=== PATIENT | male | born 1945 | race Caucasian/White ===

== ENCOUNTER 2017-04-21 08:00 | Outpatient (RCR) | payer MEDICARE, OTHER, SELFPAY | END 2017-04-21 23:59 | LOC: PT.CARL 08:00 | PROVIDERS: Referring Provider Plastic Surgery; Visit Provider Plastic Surgery | DX: G56.03 Carpal tunnel syndrome, bilateral upper limbs (principal) | CPT/HCPCS: G8990; G8991; G8992; 97110; 97140; 97165 ==

== ENCOUNTER → 2017-05-15 08:56 | Outpatient (POV) | payer MEDICARE, OTHER, SELFPAY | PROVIDERS: Family Provider Internal Medicine; PCP Internal Medicine; Visit Provider Physician Assistant | DX: Z00.00 Encounter for general adult medical examination without abnormal findings (principal) ==

== ENCOUNTER 2017-05-22 11:00 | Outpatient (RCR) | payer MEDICARE, OTHER, SELFPAY | END 2017-06-12 13:00 | disposition home or self-care (01) | LOC: OT 11:00 | PROVIDERS: Family Provider Internal Medicine; PCP Internal Medicine; Visit Provider Plastic Surgery | DX: G56.03 Carpal tunnel syndrome, bilateral upper limbs (principal) | CPT/HCPCS: 97110; 97140 ==

== ENCOUNTER → 2017-06-16 16:03 | Outpatient (REF) | payer MEDICARE, OTHER, SELFPAY ==
[2017-06-16 17:02] LABS: Anion Gap 10.5 mEq/L (5-15); Blood Urea Nitrogen 17 mg/dL (7-18); Carbon Dioxide 32 mmol/L (21.0-32.0); Chloride 105 mmol/L (98-107); Creatinine,Serum 1.43 mg/dL (0.70-1.30); Estimated Glomerular Filt Rate 49 ml/min (>60); GFR (African American) 59 ML/MIN (>60); Glucose 98 mg/dL (74-106); Potassium 4.5 mmoL/L (3.5-5.1); Sodium 143 mmol/L (136-145)
== END ==
LOC: LAB 16:03
PROVIDERS: Visit Provider Internal Medicine
DX: I10 Essential (primary) hypertension (principal)
CPT/HCPCS: 80048

== ENCOUNTER → 2017-09-20 14:35 | Outpatient (CLI) | payer MEDICARE, OTHER, SELFPAY ==
--- NOTE | 2017-09-20 14:39 | MR_ITS ---
MR shoulder RT wo con COMPARISON: None HISTORY: Right shoulder pain with decreased range of motion ORDERING PHYSICIAN: Poncho Lawrence PATIENT AGE: 72 years TECHNIQUE: Routine multiplanar multiecho sequences are performed without contrast. FINDINGS: Study is somewhat limited due to motion artifact. There appears to been prior osteotomy at the acromioclavicular joint. Correlation with radiographs would be helpful. There is subacromial stenosis. There is thinning of the supraspinatus tendon with partial tear involving the distal aspect of the supraspinatus tendon. There is also thinning of the infraspinatus tendon. A full-thickness tear however not identified. Subscapularis and teres minor tendons are intact. Subcortical cystic changes involve the humeral head laterally and posteriorly. There are mild osteoarthritic changes at the glenohumeral joint. Humeral heads right slightly superior within the glenoid fossa. No obvious labral tear. There is a small amount of fluid in the subscapular region and within the shoulder joint. Bicipital tendon is in place. IMPRESSION: 1. 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 2. Subarticular cystic changes of the humeral head with shoulder joint effusion
== END ==
PROVIDERS: Family Provider Internal Medicine; PCP Internal Medicine; Visit Provider Internal Medicine
DX: M25.511 Pain in right shoulder (principal); M25.611 Stiffness of right shoulder, not elsewhere classified
CPT/HCPCS: 73221

== ENCOUNTER → 2017-11-17 13:15 | Outpatient (CLI) | payer MEDICARE, OTHER, SELFPAY ==
[2017-11-17 13:30] LABS: Microscopic, Urine URINE MICROSCOPIC (MICROSCOPIC)
[2017-11-17 13:52] LABS: Appearance,Urine CLEAR (Clear); Bilirubin,Urine Negative (Negative); Blood, Urine Negative (Negative); Color,Urine YELLOW (Yellow); Glucose,Urine (UA) Negative (Negative); Ketones,Urine Negative (Negative); Leukocyte Esterase,Urine Negative (Negative); Nitrate,Urine Negative (Negative); Protein,Urine Negative (Negative); Urobilinogen,Urine 0.2 EU/dl (0.2)
[2017-11-17 14:42] LABS: INR 1.02 (0.9-1.1); Prothrombin Time 10.5 seconds (9.4-11.8)
[2017-11-17 14:52] LABS: Hemoglobin A1C 6.1 % (0.0-7.0)
[2017-11-17 15:03] LABS: Basophils % 0.4 % (0.1-2.0); Eosinophils % 0.4 % (0.1-12.0); Hematocrit 41.7 % (42.0-52.0); Hemoglobin 14.1 g/dL (14.1-18.0); Lymphocytes # 2.2 K/mm3 (0.7-4.5); Lymphocytes % 27.9 K/mm3 (10-50); Mean Corpuscular HGB Conc 33.7 g/dL (31.8-35.4); Mean Corpuscular Hemoglobin 32.7 pg (27.0-31.2); Mean Corpuscular Volume 97.1 fl (80-94); Mean Platelet Volume 6.6 fl (7.4-10.4); Monocytes # 0.5 K/mm3 (0.1-1.0); Monocytes % 6.4 % (1.7-9.3); Neutrophils # 5.1 K/mm3 (1.8-7.8); Neutrophils % 64.8 % (37.0-80.0); Platelet Count 350 K/mm3 (142-424); Red Cell Distribution Width 12.7 % (11.5-17.5); White Blood Count 7.9 K/mm3 (4.8-10.8)
[2017-11-17 17:36] LABS: Alanine Aminotransferase 25 U/L (12-78); Albumin Level 4.1 gm/dL (3.4-5.0); Albumin/Globulin Ratio 1.4 (1.1-1.8); Alkaline Phosphatase 67 U/L (46-116); Anion Gap 9.4 mEq/L (5-15); Aspartate Amino Transferase 16 U/L (15-37); Bilirubin,Total 0.6 mg/dL (0.2-1.0); Blood Urea Nitrogen 21 mg/dL (7-18); Calcium 9.2 mg/dL (8.5-10.1); Carbon Dioxide 29 mmol/L (21.0-32.0); Chloride 105 mmol/L (98-107); Creatinine,Serum 1.43 mg/dL (0.70-1.30); Estimated Glomerular Filt Rate 49 ml/min (>60); GFR (African American) 59 ML/MIN (>60); Globulin 2.9 gm/dl (1.3-3.2); Glucose 90 mg/dL (74-106); Potassium 4.4 mmoL/L (3.5-5.1); Sodium 139 mmol/L (136-145)
== END ==
PROVIDERS: PCP Internal Medicine; Visit Provider Orthopaedic Surgery
DX: M75.101 Unspecified rotator cuff tear or rupture of right shoulder, not specified as traumatic; E78.5 Hyperlipidemia, unspecified; I49.9 Cardiac arrhythmia, unspecified; R73.01 Impaired fasting glucose
CPT/HCPCS: 36415; 80053; 81001; 83036; 85025; 85610; 85730

== ENCOUNTER → 2017-12-18 13:14 | Outpatient (POV) | payer MEDICARE, OTHER, SELFPAY | PROVIDERS: Family Provider Internal Medicine; PCP Internal Medicine; Visit Provider Physician Assistant | DX: Z00.00 Encounter for general adult medical examination without abnormal findings (principal) ==

== ENCOUNTER → 2018-03-06 14:03 | Outpatient (POV) | payer MEDICARE, OTHER, SELFPAY | PROVIDERS: Visit Provider Dermatology | DX: Z00.00 Encounter for general adult medical examination without abnormal findings (principal) ==

== ENCOUNTER 2018-03-27 10:00 | Outpatient (RCR) | payer MEDICARE, OTHER, SELFPAY | END 2018-03-27 10:30 | disposition home or self-care (01) | LOC: PT 10:00 | PROVIDERS: Family Provider Internal Medicine; PCP Internal Medicine; Visit Provider Orthopaedic Surgery | DX: M75.101 Unspecified rotator cuff tear or rupture of right shoulder, not specified as traumatic (principal) | CPT/HCPCS: 97014; 97016; 97110; 97140; 97163; 97164; G0283 ==

== ENCOUNTER → 2018-06-05 13:50 | Outpatient (POV) | payer MEDICARE, OTHER, SELFPAY | PROVIDERS: Visit Provider Dermatology | DX: Z00.00 Encounter for general adult medical examination without abnormal findings (principal) ==

== ENCOUNTER → 2018-11-15 07:00 | Outpatient (CLI) | payer MEDICARE, OTHER, SELFPAY ==
[2018-11-16 12:44] LABS: Creatinine,Urine Random 56 mg/dL (20-320)
[2018-11-16 12:51] LABS: Total Protein,Urine Random < 6.0 mg/dL (0.0-11.9)
[2018-11-16 12:52] LABS: Collection Time,Urine 24 hours; Creatinine 24 Hour,Urine 1400 mg/24hr (630-2500); Total Protein 24 Hour,Urine 150 mg/24 hr (40-90); Total Volume,Urine 2500 mL (250-2400)
== END ==
PROVIDERS: Visit Provider Internal Medicine
DX: R79.89 Other specified abnormal findings of blood chemistry (principal)
CPT/HCPCS: 82570; 84155

== ENCOUNTER → 2018-11-16 09:58 | Outpatient (CLI) | payer MEDICARE, OTHER, SELFPAY ==
--- NOTE | 2018-11-16 10:06 | US_ITS ---
US Kidney COMPARISON: None HISTORY: Elevated creatinine TECHNIQUE: Targeted ultrasound the kidneys FINDINGS: The right kidney measures 9.9 x 4.7 x 5.6 cm. The cortical thickness is 1.3 cm. There is no hydronephrosis. There is a tiny hypoechoic exophytic cystic lesion mid pole measuring 1.2 x 0.9 x 0.8 cm. Is a focal high density midpole of the pelvis with acoustic shadowing beneath suggesting a renal calculus measuring approximate 1.5 cm. There is normal vascularity. The spleen was not definitely imaged. The left kidney measures 10.5 x 4.5 x 4.6 semiurgent. The cortical thickness is 1.0 cm. There is no hydronephrosis and no cystic or solid lesions seen. There is normal vascularity. IMPRESSION: Normal size kidneys with good cortical thickness bilaterally apparent nonobstructing right renal calculus as noted
== END ==
PROVIDERS: Visit Provider Internal Medicine
DX: R94.4 Abnormal results of kidney function studies (principal)
CPT/HCPCS: 76770

== ENCOUNTER → 2018-11-24 10:00 | Outpatient (CLI) | payer MEDICARE, OTHER, SELFPAY ==
[2018-11-24 11:34] LABS: Creatinine,Urine Random 63 mg/dL (20-320)
[2018-11-24 11:39] LABS: Collection Time,Urine 24 hours; Creatinine 24 Hour,Urine 1512 mg/24hr (630-2500); Creatinine,Serum 1.46 mg/dL (0.70-1.30); Total Volume,Urine 2400 mL (250-2400)
[2018-11-24 11:45] LABS: Patient Height,Urine 69 inches
[2018-11-24 11:46] LABS: Creatinine Clearance Urine 60.4 mL/min (85-125); Patient Weight,Urine 200 lbs
== END ==
PROVIDERS: Visit Provider Internal Medicine
DX: R94.4 Abnormal results of kidney function studies (principal)
CPT/HCPCS: 82575

== ENCOUNTER → 2019-01-29 09:58 | Outpatient (POV) | payer MEDICARE, OTHER, SELFPAY | PROVIDERS: Visit Provider Dermatology | DX: Z00.00 Encounter for general adult medical examination without abnormal findings (principal) ==

== ENCOUNTER → 2019-08-12 07:56 | Outpatient (CLI) | payer MEDICARE, OTHER, SELFPAY ==
--- NOTE | 2019-08-12 07:57 | CT_ITS ---
PROCEDURE: CT ABDOMEN PELVIS WO CON CLINICAL INDICATION: kidney stone Right flank pain COMPARISON: No exams were available for comparison TECHNIQUE: Axial images obtained with sagittal and coronal reformats. All CT scans at the facility use one or more dose reduction, viz: automated exposure control, ma/kV adjustment per patient size (including targeted exams where dose is matched to indication, i.e. head), or iterative reconstruction technique. FINDINGS: LOWER THORAX: Nodularity noted in the left lung base at 5 mm and may be due to an area fibrosis and may be confirmed follow-up. ABDOMEN & PELVIS: The liver, gallbladder, spleen, pancreas and adrenal glands have an unremarkable appearance. There are bilateral nonobstructing renal calculi. A 5 mm stone is present in the mid polar region of the right kidney and also 1 in the mid polar region of the left kidney measuring 5 mm. There is some mild stranding of the perinephric renal fat nonspecific. No ureteral calculi are evident Prostate is enlarged at 5 cm. No evidence of appendicitis or diverticulitis. There is diverticulosis of the sigmoid colon. Unremarkable appearing urinary bladder Degenerative changes of the hips and spine. IMPRESSION: 1. Bilateral nephrolithiasis. No ureteral calculi or hydronephrosis. 2. Sigmoid diverticulosis without diverticulitis. 3. Constipation Dictated by: Thomas Mcelroy MD 08/13/2019 12:58 Electronically signed by Thomas Mcelroy MD in [facility] 08/13/2019 12:58
== END ==
PROVIDERS: PCP Internal Medicine; Visit Provider Urology
DX: N20.0 Calculus of kidney (principal)
CPT/HCPCS: 74176

== ENCOUNTER → 2019-09-03 14:29 | Outpatient (POV) | payer MEDICARE, OTHER, SELFPAY | PROVIDERS: PCP Internal Medicine; Visit Provider Physician Assistant | DX: Z00.00 Encounter for general adult medical examination without abnormal findings (principal) ==

== ENCOUNTER → 2019-09-12 11:57 | Outpatient (CLI) | payer MEDICARE, OTHER, SELFPAY ==
[2019-09-12 13:49] LABS: Prostate Specific Ag Screen 2.5 ng/ml (0.0-4.0)
== END ==
PROVIDERS: Visit Provider Urology
DX: Z12.5 Encounter for screening for malignant neoplasm of prostate (principal)
CPT/HCPCS: 36415; G0103

== ENCOUNTER 2019-11-22 10:49 | Emergency (ER) | payer MEDICARE, OTHER, SELFPAY ==
[2019-11-22] VITALS (8 sets, daily range): BP systolic 125–163; BP diastolic 74–82; PULSE 48–65; RESP 16; TEMP 36.6; O2SAT 94–98; BMI 27.3
--- NOTE | 2019-11-22 10:45 | ECG_ITS ---
APPROVED REPORT Exam: Resting ECG HR:58 bpm ECG Measurements Heart Rate 58 AXES SC 136 P 70 QRSd 92 QRS -26 QT 448 T 31 QTc 439 <Conclusion> Sinus bradycardia Otherwise normal ECG Electronically signed by : Poncho Lawrence, 11/22/2019 19:57:13
--- NOTE | 2019-11-22 10:53 | XR_ITS ---
PROCEDURE: XR CHEST 2V CLINICAL HISTORY: Chest Pain Chest pain, shortness of air, chest tightness COMPARISON: No exams were available for comparison FINDINGS: The cardiomediastinal silhouette and pulmonary vascularity are within normal limits. The lungs are clear without infiltrates, suspicious nodules, or pleural effusions. There are postsurgical changes of the right shoulder and distal clavicle IMPRESSION: No acute findings. Dictated by: Thomas Mcelroy MD 11/22/2019 14:14 Electronically signed by Thomas Mcelroy MD in [facility] 11/22/2019 14:14
[2019-11-22 11:02] LABS: Basophils % 0.4 % (0.1-2.0); Eosinophils % 0.5 % (0.1-12.0); Hematocrit 38.8 % (42.0-52.0); Lymphocytes # 2.8 K/mm3 (0.7-4.5); Lymphocytes % 33.7 % (10-50); Mean Corpuscular HGB Conc 33.5 g/dL (31.8-35.4); Mean Corpuscular Hemoglobin 32.2 pg (27.0-31.2); Mean Corpuscular Volume 96.1 fl (80-94); Mean Platelet Volume 7.2 fl (7.4-10.4); Monocytes # 0.4 K/mm3 (0.1-1.0); Monocytes % 5.2 % (1.7-9.3); Neutrophils % 60.2 % (37.0-80.0); Platelet Count 295 K/mm3 (142-424); Red Blood Count 4.03 M/mm3 (4.60-6.20); White Blood Count 8.3 K/mm3 (4.8-10.8)
[2019-11-22 11:12] LABS: Anion Gap 13.9 mEq/L (5-15); Blood Urea Nitrogen 19 mg/dl (9-20); Calcium 9.8 mg/dl (8.4-10.2); Carbon Dioxide 28 mmol/L (22.0-30.0); Chloride 105 mmol/L (98-107); Creatinine Clearance Estimated 58 mL/min (50-200); Estimated Glomerular Filt Rate 54 ml/min (>60); GFR (African American) 65 ML/MIN (>60); Glucose 109 mg/dl (74-100); Potassium 3.9 mmoL/L (3.5-5.1); Sodium 143 mmol/L (136-145)
--- NOTE | 2019-11-22 11:17 | PC.NURSE ---
Pt walked by [employer] to rad.
--- NOTE | 2019-11-22 11:19 | PC.NURSE ---
t walked back from [facility].
[2019-11-22 11:24] LABS: Troponin I < 0.01 ng/ml (0.00-0.034)
--- NOTE | 2019-11-22 12:44 | HMH.EDCP ---
ED Disposition Clinical Impression: Chest pain Disposition: Home, Self-Care Condition on Discharge: Good Instructions: DI for Atypical Chest Pain Additional Instructions: Please follow-up with your head mechanic at [facility] in the next week for an outpatient stress test. If condition worsens please return to the emergency department. Referrals: Poncho Lawrence [Primary Care Provider] - - Critical Care Critical Care Time: No Attestation: On 11/22/19, the high probability of a clinically significant, sudden or life threatening deterioration of the following system(s) required my full and direct attention, intervention and personal management. The time I documented below is in addition to time spent performing reported procedures but includes the following listed in this critical care notation. Medical Decision Making - Medical Records Medical records reviewed: Yes: I reviewed the patient's medical records. - Tc Inquiry Pt receiving controlled substance: No Vital Signs: 11/22/19 10:51 11/22/19 11:28 11/22/19 11:54 Temperature 98 F Temperature Source Oral Pulse Rate [Left Radial] 52 L 55 L 55 L Respiratory Rate 16 Blood Pressure [Right Arm] 154/77 H 159/74 H 147/77 H Blood Pressure Mean [Right Arm] 102 102 100 Blood Pressure Source [Right Arm] Automatic Cuff Automatic Cuff Blood Pressure Position [Right Arm] Sitting Sitting Sitting 02 Sat by Pulse Oximetry 98 98 95 Oxygen Delivery Method Room Air Room Air Room Air 11/22/19 12:32 Temperature Temperature Source Pulse Rate [Left Radial] 48 L Respiratory Rate Blood Pressure [Right Arm] 147/79 H Blood Pressure Mean [Right Arm] 101 Blood Pressure Source [Right Arm] Automatic Cuff Blood Pressure Position [Right Arm] Sitting 02 Sat by Pulse Oximetry 94 L Oxygen Delivery Method Room Air - Lab Data Lab results reviewed: Yes: I reviewed the patient's lab results. Lab Results 11/22/19 10:55: WBC 8.3, RBC 4.03 L, Hgb 13.0 L, Hct 38.8 L, MCV 96.1 H, MCH 32.2 H, MCHC 33.5, RDW 13.0, Plt Count 295, MPV 7.2 L, Neut % (Auto) 60.2, Lymph % (Auto) 33.7, Concho % (Auto) 5.2, Eos % (Auto) 0.5, Baso % (Auto) 0.4, Neut # (Auto) 5.0, Lymph # (Auto) 2.8, Concho # (Auto) 0.4, Eos # (Auto) 0.0, Baso # (Auto) 0.0 11/22/19 10:55: Sodium 143, Potassium 3.9, Chloride 105, Carbon Dioxide 28, Anion Gap 13.9, BUN 19, Creatinine 1.30 H, Estimated Creat Clear 58, Estimated GFR 54 L, Est GFR ( Amer) 65, Glucose 109 H, Calcium 9.8, Troponin I < 0.01 Result diagrams: 11/22/19 10:55 11/22/19 10:55 Orders (Tests/Meds): ED MEDICATIONS Discontinued Medications Generic Name Dose Route Start Last Admin Trade Name Freq PRN Reason Stop Dose Admin Aspirin 324 mg 11/22/19 10:59 11/22/19 11:04 Aspirin 81mg Chewable Tablet PO 11/22/19 11:00 324 mg ONCE ONE Administration Nitroglycerin 1 gm 11/22/19 11:22 11/22/19 11:26 Nitroglycerin 1 Inch Oint Udp TD 11/22/19 11:23 1 gm ONCE ONE Administration ORDERS Category Date Time Status XR chest 2V Stat Exams 11/22/19 10:53 Taken Troponin I Q3H Lab 11/22/19 14:00 Ordered Troponin I Q3H Lab 11/22/19 17:00 Ordered - Radiology Data #1 Image(s): Chest Preliminary Findings: Normal/NAD - ECG Data Tracing #1 I reviewed this ECG and interpreted as documented below: Normal Sinus Rhythm: Yes - DIEGO Score for Non-Stemi Age of Patient: 70-79 years old Heart Rate: 50-69 bpm Systolic Blood Pressure: 120-139 mmhg Serum Creatinine: 0.40-0.79 mg/dl CHF Killip Class: I-No CHF Other Risk Factors: None Non-Stemi Risk Score: 116 Risk Stratification: 109-140 = Intermediate Ri Medical Decision Narrative: Troponins were negative he had a 2-hour troponin done was negative as well. Chest Pain HPI - General Chief Complaint: Chest Pain Stated Complaint: Chest Pain Time Seen by Provider: 11/22/19 12:45 Mode of Arrival: Ambulatory Source of Information: Patient Limitations:
[2019-11-22 13:59] LABS: Troponin I < 0.01 ng/ml (0.00-0.034)
== END 2019-11-22 16:05 | disposition home or self-care (01) ==
PROVIDERS: Emergency Provider Family Medicine; PCP Internal Medicine
DX: R07.9 Chest pain, unspecified (principal); I10 Essential (primary) hypertension; E78.5 Hyperlipidemia, unspecified; Z79.899 Other long term (current) drug therapy
CPT/HCPCS: 71046; 80048; 84484; 85025; 93005; 99284

== ENCOUNTER → 2019-11-28 11:03 | Outpatient (CLI) | payer MEDICARE, OTHER, SELFPAY ==
--- NOTE | 2019-11-28 11:09 | CA_ITS ---
APPROVED REPORT Client Technical Professional: Qi Holden RVT Laterality: Bilateral Study Quality: Excellent Indications: bilateral carotid bruits Risk Factors Hypertension: Doppler Spectral Velocity Analysis ECA (R) 82.80/12.80 cm/s ECA (L) 59.70/7.90 cm/s dICA (R) 72.60/20.50 cm/s dICA (L) 68.70/20.70 cm/s Zulema (R) 74.50/19.30 cm/s Zulema (L) 58.20/16.70 cm/s pICA (R) 53.90/12.20 cm/s pICA (L) 61.90/15.70 cm/s dCCA (R) 86.70/14.10 cm/s dCCA (L) 71.60/12.90 cm/s pCCA (R) 93.10/10.30 cm/s pCCA (L) 114.90/16.70 cm/s Vert (R) 50.70/12.80 cm/s Vert (L) 38.60/7.80 cm/s ICA/CCA 0.86 ICA/CCA 0.96 Findings Study suggests less than 20 % stenosis of the right internal cartoid artery. Study suggests less than 20% stenosis of the left internal cartoid artery. Antegrade flow seen bilateral vertebral arteries. Conclusion Study suggests less than 20 % stenosis of the right internal cartoid artery. Study suggests less than 20% stenosis of the left internal cartoid artery. Antegrade flow seen bilateral vertebral arteries. Electronically signed by : Thomas Mcelroy MD 12/02/2019 15:24:46
--- NOTE | 2019-11-28 11:09 | CA_ITS ---
APPROVED REPORT EXAM: Comprehensive 2D, Doppler, and color-flow Echocardiogram Nursing Director: Magnolia Overton RT(R) Ht: 5 ft 8 in Wt: 165lbs BSA: 1.88 BP: 150/72 mmHg Indications: CP, HTN, hyperlipidemia, angina 2D Dimensions LVOT 1.95 cm (M/F) 1.5-2.5 M-Mode Dimensions RVDd 2.36 cm (0.9-2.6) LVDd 5.43 cm (3.5-5.7) LVDs 3.82 cm (3.5-5.7) IVSd 1.04 cm (0.6-1.1) PWd 0.96 cm (0.6-1.1) EF (Teich) 56.20% FS 29.70% EDV (Teich) 143.10 mL ESV (Teich) 62.70 mL LV Diastology E/A Ratio 0.85 Mitral Valve MV A Velocity 66.00 (40-130 cm/s) Left Ventricle Left atrium is mildly enlarged, left ventricle is normal size, mild concentric left ventricular hypertrophy, visually estimated ejection fraction 55% with no regional wall motion abnormality, grade 1 diastolic dysfunction seen without tissue Doppler evidence of raise left atrial pressure. Right Ventricle Right atrium and right ventricular normal size and contractility. Aortic Valve Aortic valve is minimally thickened and fibrosed, there is no aortic stenosis, there is trace aortic insufficiency. Mitral Valve Mitral valve is grossly normal, there is mild mitral regurgitation. Tricuspid Valve Tricuspid valve is grossly normal, there is mild tricuspid regurgitation, tricuspid regurgitation jet velocity is inadequate for calculation of the right ventricular systolic pressure. Pulmonic Valve Pulmonic valve is poorly visualized. Great Vessels Aortic root is normal size. Pericardium No significant pericardial effusion noted. Conclusion 1. Mildly enlarged left atrium, normal left ventricular size, mild concentric left ventricular hypertrophy, visually estimated ejection fraction 55% with no regional wall motion abnormality, grade 1 diastolic dysfunction seen without tissue Doppler evidence of raise left atrial pressure. 2. Trace aortic, mild mitral and tricuspid regurgitation. 3. No significant pericardial effusion noted. Electronically signed by : Anthony Jensen, 11/28/2019 15:20:29
== END ==
PROVIDERS: PCP Internal Medicine; Visit Provider Internal Medicine Cardiovascular Disease
DX: R09.89 Other specified symptoms and signs involving the circulatory and respiratory systems (principal); E78.5 Hyperlipidemia, unspecified; I10 Essential (primary) hypertension; I20.0 Unstable angina; R00.1 Bradycardia, unspecified; Z87.891 Personal history of nicotine dependence
CPT/HCPCS: 93306; 93880

== ENCOUNTER 2019-11-29 08:42 | Day surgery (SDC) | payer MEDICARE, OTHER, SELFPAY ==
[2019-11-29] VITALS (10 sets, daily range): BP systolic 111–171; BP diastolic 41–88; PULSE 42–59; RESP 16; TEMP 36.4; O2SAT 94–98; BMI 25.0
[2019-11-29 09:29] LABS: Basophils % 0.3 % (0.1-2.0); Eosinophils % 0.4 % (0.1-12.0); Hematocrit 36.8 % (42.0-52.0); Hemoglobin 12.7 g/dL (14.1-18.0); Lymphocytes # 2.4 K/mm3 (0.7-4.5); Lymphocytes % 22.4 % (10-50); Mean Corpuscular HGB Conc 34.5 g/dL (31.8-35.4); Mean Corpuscular Hemoglobin 33.5 pg (27.0-31.2); Mean Corpuscular Volume 97.2 fl (80-94); Mean Platelet Volume 7.1 fl (7.4-10.4); Monocytes # 0.6 K/mm3 (0.1-1.0); Monocytes % 5.3 % (1.7-9.3); Neutrophils # 7.6 K/mm3 (1.8-7.8); Neutrophils % 71.6 % (37.0-80.0); Platelet Count 275 K/mm3 (142-424); Red Blood Count 3.79 M/mm3 (4.60-6.20); Red Cell Distribution Width 13.1 % (11.5-17.5); White Blood Count 10.7 K/mm3 (4.8-10.8)
[2019-11-29 09:32] LABS: Chloride 104 mmol/L (98-107); Potassium 4.2 mmoL/L (3.5-5.1); Sodium 141 mmol/L (136-145)
[2019-11-29 09:35] LABS: Anion Gap 14.2 mEq/L (5-15); Blood Urea Nitrogen 18 mg/dl (9-20); Calcium 9.6 mg/dl (8.4-10.2); Carbon Dioxide 27 mmol/L (22.0-30.0); Creatinine Clearance Estimated 58 mL/min (50-200); Estimated Glomerular Filt Rate 59 ml/min (>60); GFR (African American) 72 ML/MIN (>60); Glucose 99 mg/dl (74-100)
--- NOTE | 2019-11-29 12:30 | IR_ITS ---
APPROVED REPORT Patient Location: Outpatient PROCEDURES Left heart catheterization Left ventriculogram Selective coronary angiogram INDICATION Numerous risk factors for coronary disease, Unstable angina Informed consent was obtained prior to the procedure. COMPLICATIONS none Estimated Blood Loss: less than 10 mls TECHNIQUE One percent lidocaine used to anesthetize the right anterior aspect of the wrist. The right radial artery was accessed via the Seldinger technique. A 6 Kinyarwanda sheath was placed in the right radial artery. 2.5 mg of verapamil, 800 mcg of nitroglycerin, 1mg Lidocaine and 5000 U Heparin were given through the arterial sheath. The trap catheter was also used to perform left heart catheterization, left ventriculogram and selective coronary angiogram. At the end of the procedure the sheath was removed good hemostasis was achieved using Traclet band, patient was transferred to the postop holding area in stable condition. ANGIOGRAPHIC RESULTS The left main artery Normal The left anterior descending artery Has mild 10% proximal stenosis with mid vessel smooth tandem 20 to 30% stenoses The circumflex artery Small nondominant normal The right coronary artery Massively large dominant vessel with mild 10 to 20% diffuse luminal irregularities The WARREN ventriculogram reveals Normal at 65% The left ventricular end-diastolic pressure 10 mmHg IMPRESSION Mild [id number] coronary disease Normal ejection fraction Normal left ventricular end-diastolic pressure PLAN 1. Standard therapy for coronary artery disease 2. Medical management 3. Risk factor modification 4. Evaluation of noncardiac chest pain Electronically signed by : Keith Azar, 11/29/2019 11:32:48
== END 2019-11-29 14:35 | disposition home or self-care (01) ==
LOC: CATHLAB 08:44
PROVIDERS: PCP Internal Medicine; Visit Provider Internal Medicine
DX: E78.5 Hyperlipidemia, unspecified (principal); I10 Essential (primary) hypertension; R00.1 Bradycardia, unspecified; R06.00 Dyspnea, unspecified; Z87.891 Personal history of nicotine dependence; I25.110 Atherosclerotic heart disease of native coronary artery with unstable angina pectoris; Z82.49 Family history of ischemic heart disease and other diseases of the circulatory system; Z79.82 Long term (current) use of aspirin; Z79.899 Other long term (current) drug therapy
CPT/HCPCS: 80048; 85025; 93458; 99152; C1725; C1769; J1644; Q9967

== ENCOUNTER → 2019-12-24 16:07 | Outpatient (CLI) | payer MEDICARE, OTHER, SELFPAY | PROVIDERS: PCP Internal Medicine; Visit Provider Internal Medicine | DX: R00.1 Bradycardia, unspecified (principal); R42 Dizziness and giddiness | CPT/HCPCS: 93225; 93226 ==

== ENCOUNTER → 2020-07-28 10:11 | Outpatient (POV) | payer MEDICARE, OTHER, SELFPAY | PROVIDERS: Visit Provider Dermatology | DX: Z00.00 Encounter for general adult medical examination without abnormal findings (principal) ==

== ENCOUNTER → 2020-09-18 08:09 | Outpatient (CLI) | payer MEDICARE, OTHER, SELFPAY ==
[2020-09-18 16:15] LABS: Prostate Specific Ag Screen 1.7 ng/ml (0.0-4.0)
== END ==
PROVIDERS: Visit Provider Urology
DX: Z12.5 Encounter for screening for malignant neoplasm of prostate (principal)
CPT/HCPCS: 36415; G0103

== ENCOUNTER → 2020-09-23 14:18 | Outpatient (CLI) | payer MEDICARE, OTHER, SELFPAY | PROVIDERS: Visit Provider Urology | DX: N40.1 Benign prostatic hyperplasia with lower urinary tract symptoms (principal); Z01.812 Encounter for preprocedural laboratory examination; Z20.822 Contact with and (suspected) exposure to COVID-19 | CPT/HCPCS: U0003 ==

== ENCOUNTER 2020-09-25 08:17 | Day surgery (SDC) | payer MEDICARE, OTHER, SELFPAY ==
[2020-09-23 13:03] VITALS: BMI 26.1
[2020-09-25 08:47] VITALS: BP 160/73; PULSE 62; RESP 14; TEMP 36.1; O2SAT 98
[2020-09-25 09:55] VITALS: BP 141/81; PULSE 54; RESP 18; TEMP 36.2; O2SAT 96
[2020-09-25 10:15] VITALS: BP 141/81; PULSE 54; RESP 18; O2SAT 96
--- NOTE | 2020-09-25 13:34 | HMH.OPNOTE ---
Date of procedure: 09/25/20 Pre-op Diagnosis:: BPH with obstruction Post-op Diagnosis:: Same Procedure performed:: Flexible cystoscopy Surgeon:: Abraham Clement MD Anesthesia: local Estimated blood loss (mL): 0 Clinical Note:: Patient is a 75-year-old white male with lower urinary tract symptoms and BPH. He presents today for cystoscopic evaluation to evaluate his lower tracts and to confirm BPH. He is considering UroLift. Operative findings:: Patient with by lobar hyperplasia and small median lobe. He has some mild trabeculation present in the bladder. Operative note:: Patient taken to the cystoscopy suite after informed consent was obtained. On the stretcher he was prepped and draped in the standard surgical fashion and 2% lidocaine placed into the urethra and the urethra clamped for 5 minutes. After 5 minutes the clamp removed and the flexible cystoscope introduced into the urethral meatus. Passed to the prostatic urethra which showed some bilobar hyperplasia. The bladder was entered and examined in a systematic fashion. There was some mild trabeculation present but no cellules or diverticula. The ureteral orifices were well away from the bladder neck and clear efflux of urine was noted. The scope was retroflexed showing a small median lobe. Scope then retracted into the to the bladder neck and the prostate was measured at 4 cm in length. Scope removed patient tolerated the procedure well there are no complications. We discussed that he is a very good candidate for the UroLift procedure and will we will schedule him at his earliest convenience. Condition: stable Disposition: same day Specimens:: None Complications:: None
== END 2020-09-25 10:16 | disposition home or self-care (01) ==
LOC: OUTP 08:19
PROVIDERS: PCP Internal Medicine; Visit Provider Urology
DX: N40.1 Benign prostatic hyperplasia with lower urinary tract symptoms (principal); N52.9 Male erectile dysfunction, unspecified; Z79.82 Long term (current) use of aspirin; Z79.899 Other long term (current) drug therapy; E78.5 Hyperlipidemia, unspecified; I10 Essential (primary) hypertension; Z87.891 Personal history of nicotine dependence; Z87.39 Personal history of other diseases of the musculoskeletal system and connective tissue; Z82.49 Family history of ischemic heart disease and other diseases of the circulatory system; Z83.438 Family history of other disorder of lipoprotein metabolism and other lipidemia; Z84.89 Family history of other specified conditions; Z80.9 Family history of malignant neoplasm, unspecified
CPT/HCPCS: 52000

== ENCOUNTER → 2020-11-20 11:56 | Outpatient (CLI) | payer MEDICARE, OTHER, SELFPAY | PROVIDERS: Visit Provider Urology | DX: N40.0 Benign prostatic hyperplasia without lower urinary tract symptoms (principal); Z01.812 Encounter for preprocedural laboratory examination; Z20.822 Contact with and (suspected) exposure to COVID-19 | CPT/HCPCS: U0003 ==

== ENCOUNTER 2020-11-23 08:41 | Day surgery (SDC) | payer MEDICARE, OTHER, SELFPAY ==
[2020-11-17 11:14] VITALS: BMI 25.1
[2020-11-23 09:11] VITALS: BP 138/55; PULSE 63; RESP 18; TEMP 37; O2SAT 99
--- NOTE | 2020-11-23 10:49 | HMH.ANESCL ---
[facility] Anesthesia Checklist - Patient Identification Patient Identification: Arm Band - Structural Data Admitted From: Home Planned Operative Procedure/s: Urolift Consent for Planned Operative Procedure(s) Verified: Yes - NPO Status Verified Time NPO: 00:00 - Additional verifications Anesthesia Reactions: No Hx Blood Transfusions: No Blood Transfusion Reaction: No - Airway Assessment C-Spine Mobility Assessed: Yes TMJ Mobility Assessed: Yes Dentition: Poor Dentition - Neurological Assessment Level of Consciousness: Awake Hx Seizures: No Numbness or tingling in extremities: No - Anesthesia Plan Anesthesia Risk discussed: Yes Anesthesia Plan: Verified ASA Class: II Anesthesia Type: Local & MAC [facility] History I have reviewed the patient's past medical history: Yes Medical History: Reports:: Hyperlipidemia, Hypertension Denies:: Cancer, Diabetes Mellitus Type 1, Diabetes Mellitus Type 2, Internal Pacemaker, MRSA, Seizures *Have you ever received a pneumonia vaccine?: No *Have you received a flu vaccine this season?: Yes Other Medical History: Denies: Blood Transfusion Reaction Anesthesia experience/problems:: None Other Surgeries: Yes: No Previous Surgery, Colonoscopy. No: Pacemaker Amputation: No Fractures: No - *Social History Last grade of school completed: High school graduate Smoking Status: Never smoker Alcohol Intake: never Substance Use Type: denies use *Occupational Status:: retired Housing: house Household Members: spouse *Travel in the last 8 weeks: None Family Hx:: Unable to obtain
[2020-11-23 12:07] VITALS: BP 107/68; PULSE 53; RESP 16; TEMP 36.2; O2SAT 97
[2020-11-23 12:17] VITALS: BP 119/68; PULSE 60; RESP 16; O2SAT 97
[2020-11-23 12:27] VITALS: BP 123/68; PULSE 63; RESP 16; O2SAT 97
[2020-11-23 12:37] VITALS: BP 114/62; PULSE 58; RESP 16; O2SAT 97
[2020-11-23 12:52] VITALS: BP 121/69; PULSE 60; RESP 16; O2SAT 97
--- NOTE | 2020-11-23 15:53 | P.OP_ITS ---
Date of procedure: 11/23/20 Pre-op Diagnosis:: BPH with obstruction and lower urinary tract symptoms. Post-op Diagnosis:: BPH with obstruction and lower urinary tract symptoms. Procedure performed:: UroLift prostatic urethral lift Surgeon:: Abraham Clement MD AUT[employer] RADIATOR MECHANIC:: Ellis Perez Anesthesia: MAC Estimated blood loss (mL): 3 Clinical Note:: Patient is a 75-year-old white male with lower urinary tract symptoms. Previous cystoscopy has confirmed BPH without a large median lobe. Treatment options have been discussed and he presents for urologic management. His symptoms have failed to improve on medical therapy. Other surgical alternatives were rejected due to known adverse side effects. Operative findings:: Lateral lobe hyperplasia was present. Operative note:: Patient was taken to the operating room after informed consent was obtained. He was placed on the operating table in the supine position and general anesthesia administered. Preoperative IV antibiotics were given. Was then placed into the dorsal lithotomy position and prepped and draped in the standard surgical fashion. A 20 Amharic cystoscope was inserted into the bladder. Prostate was examined and was consistent with previous BPH findings. The cystoscopy bridge was replaced with a UroLift delivery device. The first treatment site was the patient's right side approximately 1.5 cm distal to the bladder neck. The distal tip of the delivery device was angled laterally approximately 20 degrees at this position to compress the lateral lobe. The trigger was pulled thereby deploying a needle containing the implant through the prostate. The needle was then retracted allowing 1 end of the implant to be delivered to the capsular surface of the prostate. The implant was then tensioned to assure capsular seating and removal of slack monofilament. The device was then angled back toward midline and slowly advanced proximally until cystoscopic verification of the monofilament being centered in the delivery bay. The urethral end piece was then affixed to the monofilament thereby tailoring the size of the implant. Excess filament was then severed. The delivery device was then readvanced into the bladder. The delivery device was then replaced with cystoscope and bridge in the implant location and opening effect was confirmed cystoscopically. Same procedure was then repeated on the right side and 2 additional implants were delivered just proximal to the verumontanum, again 1 on the right and one on the left side the prostate, following the same technique. Cystoscopy then revealed a persistent area of obstruction and another implant was delivered to the right mid prostate at the 10 o'clock position. A final cystoscopy was conducted first to inspect the location and state of each implant and second to confirm the presence of a continuous anterior channel. There was some bleeding noted at the anterior portion of the prostate and the Ordaz catheter was deemed necessary. The scope removed and a 20 Amharic coud? tipped Ordaz was placed into the bladder and 10 cc placed into the balloon. Catheter was irrigated and placed to a leg bag. The patient tolerated the procedure well there are no complications. Condition: stable Disposition: same day Specimens:: None Complications:: None
== END 2020-11-23 12:52 | disposition home or self-care (01) ==
LOC: OR 08:44
PROVIDERS: PCP Internal Medicine; Visit Provider Urology
PROC: (CPT C9740; principal; 2020-11-23 10:15)
DX: N40.1 Benign prostatic hyperplasia with lower urinary tract symptoms (principal); R35.1 Nocturia; E78.5 Hyperlipidemia, unspecified; I10 Essential (primary) hypertension; Z88.8 Allergy status to other drugs, medicaments and biological substances; Z79.82 Long term (current) use of aspirin; Z79.899 Other long term (current) drug therapy
CPT/HCPCS: C9740; 96374; L8699

== ENCOUNTER → 2021-04-08 15:08 | Outpatient (CLI) | payer MEDICARE, OTHER, SELFPAY ==
--- NOTE | 2021-04-08 15:11 | MR_ITS ---
PROCEDURE: MR HEAD/BRAIN WO CON CLINICAL INDICATION: HEADACHE, ATAXIA COMPARISON: No exams were available for comparison TECHNIQUE: Routine multiplanar multi echo sequences are performed without gadolinium enhancement. FINDINGS: No midline shift, mass effect, or intracranial hemorrhage apparent. There is generalized atrophy. There is moderate prominence the ventricles. Scattered periventricular and subcortical T2 white matter hyperintensities are present consistent with microangiopathic changes. The cerebellopontine angles, cerebellum, and brainstem have an unremarkable appearance. The pituitary, optic chiasm, and craniocervical junction are unremarkable. Atrophic changes are present involving the corpus callosum. No mastoid effusion or sinus air-fluid level. IMPRESSION: Generalized atrophy with microangiopathic changes. There is prominence of the ventricular system. This may be related to volume loss from the generalized atrophy. Normal pressure hydrocephalus is also considered. Please correlate with clinical parameters. Dictated by: Thomas Mcelroy MD 04/09/2021 08:05 Thomas Mcelroy MD in [facility] 04/09/2021 08:05
== END ==
PROVIDERS: PCP Internal Medicine; Visit Provider Internal Medicine
DX: R51.9 Headache, unspecified (principal); R27.0 Ataxia, unspecified
CPT/HCPCS: 70551

== ENCOUNTER → 2021-04-12 16:16 | Outpatient (CLI) | payer MEDICARE, OTHER, SELFPAY ==
[2021-04-12 17:22] LABS: Alanine Aminotransferase 21 U/L (12-78); Albumin Level 4.5 g/dl (3.5-5.0); Albumin/Globulin Ratio 1.8 (1.1-1.8); Alkaline Phosphatase 80 U/L (38-126); Anion Gap 12.2 mEq/L (5-15); Aspartate Amino Transferase 30 U/L (17-59); Bilirubin,Total 0.8 mg/dl (0.2-1.3); Blood Urea Nitrogen 16 mg/dl (9-20); Calcium 9.8 mg/dl (8.4-10.2); Carbon Dioxide 30 mmol/L (22.0-30.0); Chloride 102 mmol/L (98-107); Chol/HDL Ratio 2.9 (1-3.5); Cholesterol 109 mg/dl (140-200); Estimated Glomerular Filt Rate 59 ml/min (>60); GFR (African American) 71 ML/MIN (>60); Globulin 2.5 g/dL (1.3-3.2); Glucose 74 mg/dl (74-100); HDL Cholesterol 38 mg/dl (40-60); Potassium 4.2 mmoL/L (3.5-5.1); Sodium 140 mmol/L (136-145); Triglycerides 77 mg/dl (30-150); VLDL Cholesterol 15 mg/dL (0-40)
[2021-04-12 17:34] LABS: Direct LDL Cholesterol 58.93 mg/dL (100-129)
== END ==
PROVIDERS: Visit Provider Internal Medicine
DX: I10 Essential (primary) hypertension (principal); E78.5 Hyperlipidemia, unspecified; E53.8 Deficiency of other specified B group vitamins; R27.0 Ataxia, unspecified
CPT/HCPCS: 80053; 80061

== ENCOUNTER → 2021-05-18 13:47 | Outpatient (POV) | payer MEDICARE, OTHER, SELFPAY | PROVIDERS: Visit Provider Dermatology | DX: Z00.00 Encounter for general adult medical examination without abnormal findings (principal) ==

== ENCOUNTER → 2021-05-26 12:42 | Outpatient (CLI) | payer MEDICARE, OTHER, SELFPAY ==
[2021-05-26 13:28] LABS: Basophils # 0.1 K/mm3 (0-0.2); Basophils % 0.6 % (0.1-2.0); Eosinophils % 0.1 % (0.1-12.0); Hematocrit 42.2 % (42.0-52.0); Hemoglobin 13.6 g/dL (14.1-18.0); Lymphocytes # 2.6 K/mm3 (0.7-4.5); Lymphocytes % 26.1 % (10-50); Mean Corpuscular HGB Conc 32.3 g/dL (31.8-35.4); Mean Corpuscular Hemoglobin 32.4 pg (27.0-31.2); Mean Corpuscular Volume 100.2 fl (80-94); Mean Platelet Volume 7.1 fl (7.4-10.4); Monocytes # 0.5 K/mm3 (0.1-1.0); Monocytes % 5.2 % (1.7-9.3); Neutrophils # 6.7 K/mm3 (1.8-7.8); Platelet Count 344 K/mm3 (142-424); Red Blood Count 4.21 M/mm3 (4.60-6.20); Red Cell Distribution Width 13.8 % (11.5-17.5); White Blood Count 9.9 K/mm3 (4.8-10.8)
[2021-05-26 14:33] LABS: C-Reactive Protein < 0.3 mg/L (0-4)
[2021-05-26 14:43] LABS: Thyroid Stimulating Hormone 1.24 uIU/mL (0.465-4.68)
[2021-05-26 15:17] LABS: Erythrocyte Sedimentation Rate 10 mm/hr (0-20)
[2021-05-26 15:31] LABS: Folate > 20.00 ng/mL
[2021-05-26 15:32] LABS: Vitamin B12 > 1000 pg/mL (239-931)
[2021-05-27 11:28] LABS: Rapid Plasma Reagin Ab Titer Non Reactive (NonRea<1:1)
[2021-06-04 13:14] LABS: Vitamin B1 195.5 nmol/L (66.5-200.0)
== END ==
PROVIDERS: PCP Internal Medicine; Visit Provider Nurse Practitioner Family
DX: G93.40 Encephalopathy, unspecified (principal); R90.89 Other abnormal findings on diagnostic imaging of central nervous system
CPT/HCPCS: 36415; 82607; 82746; 84425; 84443; 85025; 85651; 86140; 86592

== ENCOUNTER → 2021-05-31 12:52 | Outpatient (CLI) | payer MEDICARE, OTHER, SELFPAY | PROVIDERS: PCP Internal Medicine; Visit Provider Nurse Practitioner Family | DX: R90.89 Other abnormal findings on diagnostic imaging of central nervous system (principal); G93.40 Encephalopathy, unspecified | CPT/HCPCS: 95816 ==

== ENCOUNTER → 2021-07-28 21:00 | Outpatient (CLI) | payer MEDICARE, OTHER, SELFPAY | PROVIDERS: PCP Internal Medicine Cardiovascular Disease; Visit Provider Nurse Practitioner Family | DX: G47.33 Obstructive sleep apnea (adult) (pediatric) (principal); G47.61 Periodic limb movement disorder | CPT/HCPCS: 95810 ==

== ENCOUNTER 2021-09-14 10:00 | Outpatient (RCR) | payer MEDICARE, OTHER, SELFPAY ==
--- NOTE | 2021-08-12 12:48 | HMH.PTOPEV ---
PT Outpatient Evaluation Rehab PT Outpatient Evaluation Start: 08/12/21 12:15 Freq: Status: Active Protocol: Document 08/12/21 12:15 [email or web address] (Rec: 08/12/21 12:48 [email or web address] [id number]) Electronically Signed By Kirby Julien, PT 08/12/21 12:15 Outpatient Therapy Subjective History Subjective History Pt. is a 76 year old male who presents to [facility] Out[facility] Services in [place] for the initial evaluation this date( 08/12/21) w/ c/o chronic and intermittent LBP!, balance/ gait deficits, and falls of insidious onset that has worsened over the last year per pt. report. Pt. reports having a chronic history of these current complaints, but states he had been able to manage them w/ stretches and exercises over the years. Pt. reports noticing increasing LBP! while standing/ambulating >5', states noticing an increasing amount of trunk flexion w/ static standing. Pt . also reports having trouble w/ initiation of movements w/ gait. Pt. reports having a history of vertigo, but currently denies dizziness or spinning w/ positional movements at this time. Pt. also reports tripping over objects in the house secondary to his shuffling gait pattern . Recent diagnostic imaging( MRI brain) positive for increased hydrocephalus per pt . report. Pt. also reports having a recent lumbar puncture, but was unaware of the results at this time. Pt. unable to recall list of medications at this time, reports bringing it in upon return. PMH includes Hypertension and Hyperlipidemia. Chief Complaint Pain,Spasms,Stiff,Weakness,
== END 2021-09-23 17:00 | disposition home or self-care (01) ==
LOC: PT.CARL 10:00
PROVIDERS: PCP Internal Medicine; Visit Provider Internal Medicine
DX: R26.89 Other abnormalities of gait and mobility (principal)
CPT/HCPCS: 97110; 97112; 97163; 97530

== ENCOUNTER → 2021-10-11 11:41 | Outpatient (CLI) | payer MEDICARE, OTHER, SELFPAY ==
[2021-10-11 14:28] LABS: Basophils % 0.4 % (0.1-2.0); Eosinophils # 0.1 K/mm3 (0.0-0.4); Eosinophils % 0.8 % (0.1-12.0); Hematocrit 37.2 % (42.0-52.0); Hemoglobin 12.8 g/dL (14.1-18.0); Lymphocytes % 31.9 % (10-50); Mean Corpuscular HGB Conc 34.3 g/dL (31.8-35.4); Mean Corpuscular Hemoglobin 32.6 pg (27.0-31.2); Mean Corpuscular Volume 94.9 fl (80-94); Mean Platelet Volume 7.5 fl (7.4-10.4); Monocytes # 0.5 K/mm3 (0.1-1.0); Monocytes % 7.5 % (1.7-9.3); Neutrophils # 3.7 K/mm3 (1.8-7.8); Neutrophils % 59.3 % (37.0-80.0); Platelet Count 321 K/mm3 (142-424); Red Blood Count 3.92 M/mm3 (4.60-6.20); Red Cell Distribution Width 12.5 % (11.5-17.5); White Blood Count 6.3 K/mm3 (4.8-10.8)
[2021-10-11 14:33] LABS: Alanine Aminotransferase 10 U/L (12-78); Albumin/Globulin Ratio 1.7 (1.1-1.8); Alkaline Phosphatase 68 U/L (38-126); Anion Gap 12.5 mEq/L (5-15); Aspartate Amino Transferase 28 U/L (17-59); Bilirubin,Total 0.3 mg/dl (0.2-1.3); Blood Urea Nitrogen 19 mg/dl (9-20); Calcium 9.2 mg/dl (8.4-10.2); Carbon Dioxide 27 mmol/L (22.0-30.0); Chloride 105 mmol/L (98-107); Chol/HDL Ratio 3.3 (1-3.5); Cholesterol 90 mg/dl (140-200); Estimated Glomerular Filt Rate 59 ml/min (>60); GFR (African American) 71 ML/MIN (>60); Globulin 2.4 g/dL (1.3-3.2); Glucose 98 mg/dl (74-100); HDL Cholesterol 27 mg/dl (40-60); Potassium 4.5 mmoL/L (3.5-5.1); Sodium 140 mmol/L (136-145); Total Protein,Serum 6.4 g/dl (6.3-8.2); Triglycerides 41 mg/dl (30-150); VLDL Cholesterol 8 mg/dL (0-40)
[2021-10-11 14:44] LABS: Direct LDL Cholesterol 47.99 mg/dL (100-129)
[2021-10-11 15:04] LABS: Prostate Specific Ag Screen 3.7 ng/ml (0.0-4.0)
== END ==
PROVIDERS: PCP Internal Medicine; Visit Provider Internal Medicine
DX: I10 Essential (primary) hypertension (principal); E78.5 Hyperlipidemia, unspecified; G20 Parkinson's disease; N40.1 Benign prostatic hyperplasia with lower urinary tract symptoms; Z12.5 Encounter for screening for malignant neoplasm of prostate
CPT/HCPCS: 80053; 80061; 85025; G0103

== ENCOUNTER → 2021-11-17 19:53 | Outpatient (CLI) | payer MEDICARE, OTHER, SELFPAY | PROVIDERS: PCP Internal Medicine; Visit Provider Nurse Practitioner Family | DX: G47.33 Obstructive sleep apnea (adult) (pediatric) (principal); G47.61 Periodic limb movement disorder | CPT/HCPCS: 95811 ==

== ENCOUNTER → 2021-12-09 10:10 | Outpatient (CLI) | payer MEDICARE, OTHER, SELFPAY ==
[2021-12-09 15:28] LABS: Ferritin 108 ng/ml (17.9-464)
== END ==
PROVIDERS: PCP Internal Medicine; Visit Provider Nurse Practitioner Family
DX: E83.10 Disorder of iron metabolism, unspecified (principal); R25.8 Other abnormal involuntary movements
CPT/HCPCS: 36415; 82728

== ENCOUNTER → 2022-03-01 09:12 | Outpatient (POV) | payer MEDICARE, OTHER, SELFPAY | PROVIDERS: Visit Provider Dermatology | DX: Z00.00 Encounter for general adult medical examination without abnormal findings (principal) ==

== ENCOUNTER 2022-03-30 11:00 | Outpatient (RCR) | payer MEDICARE, OTHER, SELFPAY ==
--- NOTE | 2022-02-28 11:38 | HMH.PTOPEV ---
PT Outpatient Evaluation Rehab PT Outpatient Evaluation Start: 02/28/22 09:06 Freq: Status: Active Protocol: Document 02/28/22 09:06 BIBI (Rec: 02/28/22 11:37 [email or web address] [id number]) E-signed By Kirby Julien, PT Outpatient Therapy Subjective History Subjective History Pt. is a 76 year old male whom presents to [facility] in [place] for the initial evaluation this date( 02/28/22) w/ c/o chronic and intermittent BLE soreness, imbalance, shuffling gait, and decreased coordination of insidious onset for over a year now. Pt. complains of BLE soreness and numbness when walking throughout [employer]. Pt. also c/o of having an increase in s/s w/ crowded and tighter spaces, i.e. grocery shopping through [employer]. Pt. reports also noticing an increase in s/s w/ descending steps. Pt. reports soreness gets better w/ sitting. Pt. denies having any recent falls. Pt. unable to recall current list of medications at this time. PMH includes Hypertension, Hyperlipidemia, and Parkinsons . Chief Complaint Pain,Paresthesia,Weakness, Other,Decreased Coordination Symptom Type Ache,Dull,Other Symptoms Relieved By Rest/Positioning Symptoms Aggravated By Standing,Bending/Stooping, Physical Activity,Twisting, Walking Prior Functional Limitations None Current Functional Limitations Standing,Recreation Activity, Walking,Stairs,Balance,Bending /Stooping Symptom Description Intermittent,Activity Dependent Level of pain today (0-10) 0 Pain scale - at its best (0-10) 0 Pain scale - at its worst (0-10) 0 Balance Eval Subjective Hx of Complaint Comment unsteadiness,imbalance, shuffling gait,coordination deficits Chief Complaint vertigo
== END 2022-04-11 09:33 | disposition home or self-care (01) ==
LOC: PT.CARL 11:00
PROVIDERS: PCP Internal Medicine; Visit Provider Internal Medicine
DX: R26.81 Unsteadiness on feet (principal); R26.0 Ataxic gait
CPT/HCPCS: 97110; 97112; 97163; 97530

== ENCOUNTER → 2022-04-12 14:40 | Outpatient (CLI) | payer MEDICARE, OTHER, SELFPAY ==
[2022-04-12 16:02] LABS: Basophils % 0.6 % (0.1-2.0); Eosinophils % 0.3 % (0.1-12.0); Hemoglobin 13.9 g/dL (14.1-18.0); Lymphocytes # 2.5 K/mm3 (0.7-4.5); Lymphocytes % 32.7 % (10-50); Mean Corpuscular HGB Conc 32.3 g/dL (31.8-35.4); Mean Corpuscular Hemoglobin 32.6 pg (27.0-31.2); Mean Corpuscular Volume 100.9 fl (80-94); Mean Platelet Volume 8.1 fl (7.4-10.4); Monocytes # 0.5 K/mm3 (0.1-1.0); Neutrophils # 4.5 K/mm3 (1.8-7.8); Neutrophils % 60.3 % (37.0-80.0); Platelet Count 369 K/mm3 (142-424); Red Blood Count 4.26 M/mm3 (4.60-6.20); Red Cell Distribution Width 13.1 % (11.5-17.5); White Blood Count 7.5 K/mm3 (4.8-10.8)
[2022-04-12 17:24] LABS: Alanine Aminotransferase 20 U/L (12-78); Albumin Level 4.6 g/dl (3.5-5.0); Albumin/Globulin Ratio 1.8 (1.1-1.8); Alkaline Phosphatase 85 U/L (38-126); Aspartate Amino Transferase 26 U/L (17-59); Bilirubin,Total 0.6 mg/dl (0.2-1.3); Blood Urea Nitrogen 19 mg/dl (9-20); Calcium 10.1 mg/dl (8.4-10.2); Carbon Dioxide 28 mmol/L (22.0-30.0); Chloride 106 mmol/L (98-107); Chol/HDL Ratio 3.6 (1-3.5); Cholesterol 120 mg/dl (140-200); Estimated Glomerular Filt Rate 42 ml/min (>60); GFR (African American) 51 ML/MIN (>60); Globulin 2.6 g/dL (1.3-3.2); Glucose 88 mg/dl (74-100); HDL Cholesterol 33 mg/dl (40-60); Sodium 142 mmol/L (136-145); Total Protein,Serum 7.2 g/dl (6.3-8.2); Triglycerides 81 mg/dl (30-150); VLDL Cholesterol 16 mg/dL (0-40)
[2022-04-12 17:35] LABS: Direct LDL Cholesterol 63.57 mg/dL (100-129)
== END ==
PROVIDERS: PCP Internal Medicine; Visit Provider Internal Medicine
DX: I10 Essential (primary) hypertension (principal); E78.5 Hyperlipidemia, unspecified; R73.01 Impaired fasting glucose; G60.9 Hereditary and idiopathic neuropathy, unspecified; G20 Parkinson's disease
CPT/HCPCS: 80053; 80061; 85025

== ENCOUNTER → 2022-04-21 16:07 | Outpatient (CLI) | payer MEDICARE, OTHER, SELFPAY ==
--- NOTE | 2022-04-21 16:08 | MR_ITS ---
PROCEDURE INFORMATION: Exam: MR Lumbar Spine Without Contrast Exam date and time: 04/21/2022 4:41 PM Age: 77 years old Clinical indication: Low back pain; Additional info: Eval for spinal stenosis, myelopathy, claudication TECHNIQUE: Imaging protocol: Magnetic resonance imaging of the lumbar spine without contrast. COMPARISON: CT ABDOMEN PELVIS WO CON 08/12/2019 8:01 AM FINDINGS: Bones/joints: Minimal anterolisthesis of L5 over S1 attributed to a chronic right pars defect. Otherwise, there is preservation of vertebral alignment and vertebral body heights. No marrow replacing process. Spinal cord: Conus medullaris and cauda equina nerve roots are unremarkable L1-L2: No significant disc disease. No significant spinal canal stenosis. No neural foraminal stenosis. L2-L3: Diffuse disc bulge and facet arthropathy produce mild thecal sac compression. There is no significant neural foramina narrowing. L3-L4: Diffuse disc bulge and facet arthropathy without significant thecal sac compression. There is narrowing of the lateral recesses bilaterally. There is no significant neural foraminal narrowing. L4-L5: Diffuse disc bulge and facet arthropathy produce mild thecal sac compression. There is moderate bilateral neural foraminal narrowing. L5-S1: Uncovering of the disc diffuse disc bulge and facet arthropathy produce [id number] bilateral neural foraminal narrowing. There is no significant thecal sac compression. Soft tissues: Unremarkable. IMPRESSION: Multilevel degenerative changes most significant for [id number] bilateral neural foraminal narrowing at L5-S1. There is no significant thecal sac compression at any level.
== END ==
PROVIDERS: PCP Nurse Practitioner Family; Visit Provider Nurse Practitioner Family
DX: G20 Parkinson's disease (principal); G47.33 Obstructive sleep apnea (adult) (pediatric); G47.52 REM sleep behavior disorder; M54.50 Low back pain, unspecified; R29.2 Abnormal reflex; R29.898 Other symptoms and signs involving the musculoskeletal system; R41.3 Other amnesia; R45.86 Emotional lability; W19.XXXA Unspecified fall, initial encounter
CPT/HCPCS: 72148; 76376

== ENCOUNTER → 2022-04-29 13:27 | Outpatient (CLI) | payer MEDICARE, OTHER, SELFPAY ==
--- NOTE | 2022-04-29 13:30 | US_ITS ---
FINAL REPORT CLINICAL HISTORY: MACROCYTOSIS FINDINGS: Limited sonographic images of the bladder were obtained. Bladder volume measures 537 mL. Postvoid residual is 130 mL. IMPRESSION: Moderate postvoid residual. Reviewed, Interpreted and Dictated by Chuy Ruiz III, MD Transcribed by Myesha Horton Authenticated and [facility]
--- NOTE | 2022-04-29 13:30 | US_ITS ---
FINAL REPORT TECHNIQUE: Ultrasound images of the kidneys and bladder were obtained. CLINICAL HISTORY: .back pain, galindo to urinate FINDINGS: The right kidney measures 9.2 cm in length. It is normal in echogenicity. There is no hydronephrosis. There is a 1.2 cm right renal cyst. The left kidney measures 11 cm in length. It is normal in echogenicity. There is no hydronephrosis. The spleen is not visualized. IMPRESSION: Right renal cyst. Reviewed, Interpreted and Dictated by Chuy Ruiz III, MD Transcribed by Myesha Horton Authenticated and [facility]
[2022-04-29 18:33] LABS: Vitamin B12 > 1000 pg/mL (239-931)
== END ==
PROVIDERS: PCP Internal Medicine; Visit Provider Internal Medicine
DX: D75.89 Other specified diseases of blood and blood-forming organs (principal)
CPT/HCPCS: 36415; 76770; 76857; 82607

== ENCOUNTER → 2022-05-24 13:16 | Outpatient (CLI) | payer MEDICARE, OTHER, SELFPAY ==
[2022-05-24 14:25] LABS: Basophils % 0.5 % (0.1-2.0); Eosinophils # 0.1 K/mm3 (0.0-0.4); Eosinophils % 0.7 % (0.1-12.0); Hematocrit 39.8 % (42.0-52.0); Hemoglobin 12.9 g/dL (14.1-18.0); Lymphocytes # 1.8 K/mm3 (0.7-4.5); Lymphocytes % 24.5 % (10-50); Mean Corpuscular HGB Conc 32.5 g/dL (31.8-35.4); Mean Corpuscular Hemoglobin 32.3 pg (27.0-31.2); Mean Corpuscular Volume 99.6 fl (80-94); Mean Platelet Volume 8.3 fl (7.4-10.4); Monocytes # 0.4 K/mm3 (0.1-1.0); Monocytes % 4.9 % (1.7-9.3); Neutrophils % 69.4 % (37.0-80.0); Platelet Count 332 K/mm3 (142-424); Red Cell Distribution Width 13.2 % (11.5-17.5); White Blood Count 7.3 K/mm3 (4.8-10.8)
[2022-05-24 15:32] LABS: Alanine Aminotransferase 18 U/L (12-78)
== END ==
PROVIDERS: PCP Internal Medicine; Visit Provider Internal Medicine
DX: B35.1 Tinea unguium (principal)
CPT/HCPCS: 84460; 85025

== ENCOUNTER 2022-06-13 11:00 | Outpatient (RCR) | payer MEDICARE, OTHER, SELFPAY | END 2022-06-21 08:20 | disposition home or self-care (01) | LOC: PT 11:00 | PROVIDERS: PCP Internal Medicine; Visit Provider Nurse Practitioner Family | DX: M54.50 Low back pain, unspecified (principal); R93.7 Abnormal findings on diagnostic imaging of other parts of musculoskeletal system; R29.898 Other symptoms and signs involving the musculoskeletal system; G20 Parkinson's disease | CPT/HCPCS: 97110; 97163; 97530 ==

== ENCOUNTER → 2022-10-11 13:22 | Outpatient (CLI) | payer MEDICARE, OTHER, SELFPAY ==
[2022-10-11 17:21] LABS: Alanine Aminotransferase 17 U/L (12-78); Albumin Level 4.4 g/dl (3.5-5.0); Albumin/Globulin Ratio 1.8 (1.1-1.8); Alkaline Phosphatase 63 U/L (38-126); Anion Gap 16.9 mEq/L (5-15); Aspartate Amino Transferase 25 U/L (17-59); Bilirubin,Total 0.5 mg/dl (0.2-1.3); Blood Urea Nitrogen 17 mg/dl (9-20); Calcium 9.2 mg/dl (8.4-10.2); Carbon Dioxide 28 mmol/L (22.0-30.0); Chloride 104 mmol/L (98-107); Chol/HDL Ratio 3.1 (1-3.5); Cholesterol 98 mg/dl (140-200); Creatine Kinase 77 U/L (55-170); Estimated Glomerular Filt Rate 54 ml/min (>60); GFR (African American) 65 ML/MIN (>60); Globulin 2.4 g/dL (1.3-3.2); Glucose 85 mg/dl (74-100); HDL Cholesterol 32 mg/dl (40-60); Potassium 4.9 mmoL/L (3.5-5.1); Sodium 144 mmol/L (136-145); Total Protein,Serum 6.8 g/dl (6.3-8.2); Triglycerides 64 mg/dl (30-150); VLDL Cholesterol 13 mg/dL (0-40)
[2022-10-11 17:32] LABS: Direct LDL Cholesterol 54.31 mg/dL (100-129)
[2022-10-11 17:52] LABS: Prostate Specific Ag Screen 2.7 ng/ml (0.0-4.0)
== END ==
PROVIDERS: PCP Internal Medicine; Visit Provider Internal Medicine
DX: I10 Essential (primary) hypertension (principal); E78.5 Hyperlipidemia, unspecified; E53.8 Deficiency of other specified B group vitamins; G20 Parkinson's disease; G60.9 Hereditary and idiopathic neuropathy, unspecified; B02.29 Other postherpetic nervous system involvement; Z12.5 Encounter for screening for malignant neoplasm of prostate
CPT/HCPCS: 80053; 80061; 82550; G0103

== ENCOUNTER → 2022-11-22 12:13 | Outpatient (CLI) | payer MEDICARE, OTHER, SELFPAY | PROVIDERS: PCP Internal Medicine; Visit Provider Internal Medicine | DX: R00.1 Bradycardia, unspecified (principal) | CPT/HCPCS: 93270 ==

== ENCOUNTER → 2022-12-22 12:23 | Outpatient (CLI) | payer MEDICARE, OTHER, SELFPAY | PROVIDERS: PCP Internal Medicine; Visit Provider Internal Medicine | DX: I49.8 Other specified cardiac arrhythmias (principal) | CPT/HCPCS: 93225 ==

== ENCOUNTER → 2023-03-20 15:02 | Outpatient (CLI) | payer MEDICARE, OTHER, SELFPAY ==
--- NOTE | 2023-03-20 15:06 | XR_ITS ---
FINAL REPORT CLINICAL HISTORY: COUGH ,SPETUM,SOA FINDINGS: 2 views of the chest were obtained . The heart is normal in size. The mediastinum is within normal limits. The lungs are clear. There is no pneumothorax. Osseous structures are unremarkable. IMPRESSION: No acute cardiopulmonary process. Reviewed, Interpreted and Dictated by Chuy Ruiz III, MD Transcribed by Ximena Paulino Authenticated and [facility]
== END ==
PROVIDERS: PCP Internal Medicine; Visit Provider Internal Medicine
DX: R05.1 Acute cough (principal); R06.02 Shortness of breath
CPT/HCPCS: 71046

== ENCOUNTER → 2023-04-12 13:39 | Outpatient (CLI) | payer MEDICARE, OTHER, SELFPAY ==
[2023-04-12 15:24] LABS: Alanine Aminotransferase 19 U/L (12-78); Albumin Level 4.4 g/dl (3.5-5.0); Albumin/Globulin Ratio 1.6 (1.1-1.8); Alkaline Phosphatase 65 U/L (38-126); Anion Gap 11.2 mEq/L (5-15); Aspartate Amino Transferase 27 U/L (17-59); Bilirubin,Total 0.4 mg/dl (0.2-1.3); Blood Urea Nitrogen 19 mg/dl (9-20); Calcium 8.8 mg/dl (8.4-10.2); Carbon Dioxide 28 mmol/L (22.0-30.0); Chloride 105 mmol/L (98-107); Chol/HDL Ratio 6.9 (1-3.5); Cholesterol 199 mg/dl (140-200); Estimated Glomerular Filt Rate 49 ml/min (>60); GFR (African American) 59 ML/MIN (>60); Globulin 2.7 g/dL (1.3-3.2); Glucose 89 mg/dl (74-100); HDL Cholesterol 29 mg/dl (40-60); Potassium 5.2 mmoL/L (3.5-5.1); Sodium 139 mmol/L (136-145); Total Protein,Serum 7.1 g/dl (6.3-8.2); Triglycerides 80 mg/dl (30-150); VLDL Cholesterol 16 mg/dL (0-40)
[2023-04-12 15:34] LABS: Direct LDL Cholesterol 133.25 mg/dL (100-129)
== END ==
PROVIDERS: PCP Internal Medicine; Visit Provider Internal Medicine
DX: I10 Essential (primary) hypertension (principal); E78.5 Hyperlipidemia, unspecified; G60.9 Hereditary and idiopathic neuropathy, unspecified; G20.A1 Parkinson's disease without dyskinesia, without mention of fluctuations; B02.29 Other postherpetic nervous system involvement; N40.1 Benign prostatic hyperplasia with lower urinary tract symptoms; R73.01 Impaired fasting glucose; Z87.891 Personal history of nicotine dependence
CPT/HCPCS: 80053; 80061

== ENCOUNTER → 2023-04-19 14:05 | Outpatient (CLI) | payer MEDICARE, OTHER, SELFPAY ==
[2023-04-19 14:58] LABS: Chloride 104 mmol/L (98-107); Potassium 4.7 mmoL/L (3.5-5.1); Sodium 141 mmol/L (136-145)
[2023-04-19 15:01] LABS: Anion Gap 12.7 mEq/L (5-15); Blood Urea Nitrogen 21 mg/dl (9-20); Carbon Dioxide 29 mmol/L (22.0-30.0); Estimated Glomerular Filt Rate 49 ml/min (>60); GFR (African American) 59 ML/MIN (>60); Glucose 118 mg/dl (74-100)
== END ==
PROVIDERS: PCP Internal Medicine; Visit Provider Physician Assistant
DX: E87.5 Hyperkalemia (principal)
CPT/HCPCS: 36415; 80048

== ENCOUNTER → 2023-04-26 13:31 | Outpatient (CLI) | payer MEDICARE, OTHER, SELFPAY ==
[2023-04-26 16:11] LABS: Iron 124 ug/dL (49-181)
[2023-04-26 16:20] LABS: Total Iron Binding Capacity 347 ug/dL (261-462)
[2023-04-26 16:48] LABS: Ferritin 95.7 ng/ml (17.9-464)
== END ==
LOC: LAB 13:32
PROVIDERS: PCP Internal Medicine; Visit Provider Nurse Practitioner Family
DX: D53.9 Nutritional anemia, unspecified (principal)
CPT/HCPCS: 36415; 82728; 83540; 83550

== ENCOUNTER 2023-06-25 11:47 | Observation (INO) | payer MEDICARE, OTHER, SELFPAY ==
[2023-06-25] VITALS (13 sets, daily range): BP systolic 146–197; BP diastolic 78–100; PULSE 44–60; RESP 10–18; TEMP 36.5–37; O2SAT 95–98; BMI 24.6; BMI 26.3
--- NOTE | 2023-06-25 11:45 | ECG_ITS ---
APPROVED REPORT Exam: Resting ECG HR:49 bpm ECG Measurements Heart Rate 49 AXES ME 170 P 52 QRSd 100 QRS -18 QT 464 T 72 QTc 435 Conclusion SINUS BRADYCARDIA BORDERLINE ECG UNCONFIRMED REPORT Electronically signed by : Ricki Lew MD 06/25/2023 15:54:22
--- NOTE | 2023-06-25 11:48 | XR_ITS ---
PROCEDURE INFORMATION: Exam: XR Chest Exam date and time: 06/25/2023 12:00 PM Age: 78 years old Clinical indication: Other: Chest pain TECHNIQUE: Imaging protocol: Radiologic exam of the chest. Views: 1 view. COMPARISON: CR XR CHEST 2V 03/20/2023 3:13 PM FINDINGS: Lungs: No focal airspace disease. Pleural spaces: Unremarkable. No pleural effusion. No pneumothorax. Heart/Mediastinum: Cardiomediastinal silhouette is within normal limits. Bones/joints: Unremarkable. IMPRESSION: No acute cardiopulmonary abnormality.
--- NOTE | 2023-06-25 11:57 | HMH.EDCP ---
Discharge Plan Disposition Patient Disposition: Admitted Condition: Good Chief Complaint: Chest Pain Prescriptions Prescriptions: No Action benazepril 40 mg tablet 40 mg PO DAILY Patient Comments: TAKE 1 TABLET BY MOUTH EVERY MORNING FOR BLOOD PRESSURE aspirin 81 mg tablet,chewable 81 mg PO DAILY tamsulosin 0.4 mg capsule 0.4 mg PO HS Nuplazid 34 mg capsule 34 mg PO DAILY Qty: 30 5RF metoprolol tartrate 25 mg tablet 6.25 mg PO DAILY 30 Days Qty: 8 2RF amlodipine 2.5 mg tablet See Rx Instructions .ROUTE .COMPLEX Qty: 90 3RF Dose Instruction: Take 1 tablet by mouth once daily Rx Instructions: Take 1 tablet by mouth once daily ranolazine 500 mg tablet extended release 12 hr See Rx Instructions .ROUTE .COMPLEX Qty: 90 4RF Dose Instruction: TAKE 1 TABLET BY MOUTH ONCE DAILY FOR CHEST PAIN Rx Instructions: TAKE 1 TABLET BY MOUTH ONCE DAILY FOR CHEST PAIN multivitamin 1 EACH tablet 1 each PO DAILY cyanocobalamin (vitamin B-12) 5,000 MCG tablet,disintegrating 5,000 mcg PO DAILY ascorbate calcium (vitamin C) 500 MG tablet 500 mg PO DAILY Referrals Follow up/Referrals: Poncho Lawrence MD [Primary Care Provider] - See instructions Clinical Impressions Clinical Impression: Unstable angina Discharge ED Provider: Arabella Leary General Chief Complaint: Chest Pain Stated Complaint: chest pain Time Seen by Provider: 06/25/23 11:48 Mode of Arrival: Ambulatory Source of Information: Patient, Spouse and Relative (son) History of Present Illness HPI narrative: Patient is a 78-year-old male with past medical history dementia, unstable angina, hyperlipidemia, hypertension presented with chest pain. Patient and spouse state that his pain started approximately 2 hours prior to arrival before [facility] and he describes it like a pressure over his chest now with radiation down his right arm. He states he does get intermittent chest pains and his son states that over the past 2 weeks he has complained of some intermittent chest pain but they have not sought care for these episodes. Does not believe he has associated nausea and has had no fevers or chills. He has had a cardiac catheterization in the past and family believes this was approximately 2 to 3 years ago and he does follow with cardiology associated with our facility. He has not had any cardiac stenting and does not take blood thinners but does take a baby aspirin at night. Has not yet taken anything for the pain. Related Data Home Medications Medication Instructions Recorded Confirmed aspirin 81 mg chewable tablet 81 mg PO DAILY Heart disease 08/09/19 06/25/23 benazepril 40 mg tablet 40 mg PO DAILY High blood pressure 08/09/19 06/25/23 cyanocobalamin (vitamin B-12) 5,000 mcg PO DAILY Supplement 09/23/20 06/25/23 5,000 mcg disintegrating tablet multivitamin 1 each PO DAILY Supplement 09/23/20 06/25/23 ascorbate calcium (vitamin C) 500 500 mg PO DAILY Supplement 11/17/20 06/25/23 mg tablet tamsulosin 0.4 mg capsule 0.4 mg PO HS 05/10/22 06/25/23 Previous Rx's Medication Instructions Recorded pimavanserin 34 mg capsule 34 mg PO DAILY parkinson's related 01/05/23 (Nuplazid) hallucinations #30 caps metoprolol tartrate 25 mg tablet 6.25 mg PO DAILY 30 days #8 tabs 03/28/23 amlodipine 2.5 mg tablet See Rx Instructions .Route 05/17/23 .COMPLEX #90 tabs ranolazine 500 mg tablet,extended See Rx Instructions .Route 05/24/23 release,12 hr .COMPLEX #90 tabs Allergies Allergy/AdvReac Type Severity Reaction Status Date / Time isosorbide [From Imdur] AdvReac Intermediate Verified 06/13/23 13:19 [facility] Disclaimer: The information contained in this section may have been updated after the patient was seen, as this information can be updated by other users. Medical History Bilateral carotid bruits CAD (coronary artery disease) Carotid artery stenosis Dyspnea Ex-smoker HLD (hyperlipidemia) HTN (hypertension) Parkinson disease Sinus bradycardia Unstable angina Surgical History History of carpal tunnel surgery of left wrist Family History Other Cancer Coronary artery disease Hypertension Stroke Social History Smoking Status: Former smoker second hand exposure: No alcohol intake: never substance use type: denies use current occupational status: retired Travel in the last 8 weeks: None household members: spouse housing: house caffeine: Yes ROS Obtained: Yes Systems reviewed as appropriate & no additional complaints except as documented Physical Exam General General appearance: alert and in no apparent distress Head Head exam: atraumatic and normocephalic Chest Chest inspection: Present normal inspection and symmetric chest wall rise Respiratory Respiratory exam: Present normal lung sounds bilaterally; Absent respiratory distress Cardiovascular Cardiovascular exam: Present regular rate and normal rhythm Abdominal Exam Abdominal exam: Present soft; Absent tenderness Extremities Exam Extremities exam: Present normal inspection and other (no pedal edema) Neurological Exam Neurological exam: Present alert and oriented X3 Skin Skin exam: Present warm and dry HEART Score HEART Score HEART Score assessment performed?: Yes History (anamnesis): Moderately suspicious ECG: Normal Age: >65 years Risk factors: 3 or more risk factors Troponin: </= normal limit HEART Score: 5 Critical Care Critical Care Time Critical Care Time: No Medical Decision Making Medical Records Medical records reviewed: Yes I reviewed the patient's medical records. Tc Inquiry Pt receiving controlled substance: No Vital Signs Vital Signs: 06/25/23 11:47 06/25/23 12:10 06/25/23 12:01 Temperature 97.8 F Temperature Source Oral Pulse Rate 48 L 52 L Pulse Rate [Right] 48 L Respiratory Rate 15 14 Blood Pressure 160/89 H Blood Pressure [Right Arm] 197/83 H Blood Pressure Mean Blood Pressure Mean [Right Arm] 121 Blood Pressure Source [Right Arm] Automatic Cuff 02 Sat by Pulse Oximetry 98 97 Oxygen Delivery Method Room Air Room Air 06/25/23 12:31 06/25/23 13:01 06/25/23 14:01 Temperature Temperature Source Pulse Rate 44 L 47 L 52 L Pulse Rate [Right] Respiratory Rate 15 10 L 16 Blood Pressure 181/90 H 166/85 H 189/100 H Blood Pressure [Right Arm] Blood Pressure Mean 107 Blood Pressure Mean [Right Arm] Blood Pressure Source [Right Arm] 02 Sat by Pulse Oximetry 98 96 98 Oxygen Delivery Method Room Air Room Air 06/25/23 14:30 06/25/23 15:01 Temperature Temperature Source Pulse Rate 50 L 48 L Pulse Rate [Right] Respiratory Rate 16 16 Blood Pressure 168/85 H 158/80 H Blood Pressure [Right Arm] Blood Pressure Mean 112 106 Blood Pressure Mean [Right Arm] Blood Pressure Source [Right Arm] 02 Sat by Pulse Oximetry 98 96 Oxygen Delivery Method Lab Data Lab results reviewed: Yes I reviewed the patient's lab results. Labs: Lab Results 06/25/23 11:55: WBC 10.4, RBC 4.27 L, Hgb 14.4, Hct 43.8, MCV 102.6 H, MCH 33.7 H, MCHC 32.9, RDW 13.4, Plt Count 348, MPV 8.2, Neut % (Auto) 57.4, Lymph % (Auto) 32.0, [place] % (Auto) 9.0, Eos % (Auto) 1.0, Baso % (Auto) 0.6, Neut # (Auto) 5.9, Lymph # (Auto) 3.3, [place] # (Auto) 0.9, Eos # (Auto) 0.1, Baso # (Auto) 0.1, Sodium 141, Potassium 4.4, Chloride 107, Carbon Dioxide 32 H, Anion Gap 6.4, BUN 18, Creatinine 1.40 H, Estimated Creat Clear 47, Estimated GFR 49 L, Est GFR ( Amer) 59, Glucose 96, Calcium 9.5, Total Bilirubin 0.5, AST 30, ALT 22, Alkaline Phosphatase 79, Troponin I < 0.01, Total Protein 7.5, Albumin 4.5, Globulin 3.0, Albumin/Globulin Ratio 1.5 06/25/23 14:50: Troponin I 0.02 06/25/23 11:55 06/25/23 11:55 Response Orders (Tests/Meds): ED MEDICATIONS Generic Name Dose Route Start Last Admin Trade Name Freq PRN Reason Stop Dose Admin Enoxaparin Sodium 75 mg 06/25/23 15:45 Enoxaparin 100mg/Ml Syringe 1 mg/kg (75 mg) 07/25/23 15:44 SQ Q12H HORTENCIA Discontinued Medications Generic Name Dose Route Start Last Admin Trade Name Freq PRN Reason Stop Dose Admin Aspirin 324 mg 06/25/23 11:48 06/25/23 11:59 Aspirin 81mg Chewable Tablet PO 06/25/23 11:49 324 mg ONCE ONE Administration Belladonna Alkaloids 60 ml 06/25/23 14:15 06/25/23 14:23 Belladonna Alkaloids 60 Ml Ml PO 06/25/23 14:16 60 ml ONCE ONE Administration Morphine Sulfate 2 mg 06/25/23 14:13 06/25/23 14:23 Morphine 2mg/Ml Syringe IV 06/25/23 14:14 2 mg ONCE ONE Administration Ondansetron HCl 4 mg 06/25/23 14:14 06/25/23 14:23 Ondansetron 4mg/2ml Vial IV 06/25/23 14:15 4 mg ONCE ONE Administration ORDERS Category Date Time Status XR chest portable Stat Exams 06/25/23 11:48 Completed Complete Blood Count Auto Diff Stat Lab 06/25/23 11:55 Completed Comprehensive Metabolic Panel Stat Lab 06/25/23 11:55 Completed Troponin I Q3H Lab 06/25/23 14:50 Completed Troponin I Q3H Lab 06/25/23 18:00 Ordered Troponin I Stat Lab 06/25/23 11:55 Completed ECG initial [place] Routine Y 06/25/23 11:45 Completed ECG Data Tracing #1: Attestation: I reviewed this ECG and interpreted as documented below: ECG Narrative: EKG showing sinus bradycardia at a rate of 49 with normal intervals and no acute ischemia or infarction ECG initial impression date: 06/25/23 ECG initial impression time: 11:46 MDM Narrative Medical Decision Narrative: Patient is a 78-year-old male with past medical history dementia, hypertension, hyperlipidemia, unstable angina presenting with chest pain starting 2 hours prior to arrival described as a dull pressure with radiation down the right arm and has had intermittent episodes over the past 2 weeks according to son at bedside who helps to provide history. No other systemic signs of illness and exam is overall unremarkable, no pedal edema and patient is hemodynamically stable. Will obtain labs and imaging for further evaluation. Initial EKG was unremarkable but does show showing sinus bradycardia and according to medication list patient does take amlodipine and metoprolol. CBC and CMP nonactionable, troponin negative. Chest x-ray showed no acute process. Given patient pain started at least 2 hours prior to arrival and on reevaluation he does have improvement in his symptoms after aspirin and morphine and moderate risk heart score, will perform repeat troponin and reevaluate. Repeat troponin did have a significant delta now to 0.02 from less than 0.01. I did speak with Dr. Azar about this who does recommend loading Lovenox. On reevaluation patient did have some improvement in pain but still ongoing. I did speak with hospitalist on-call Dr. Torres for admission who is agreeable with mission at this time.
[2023-06-25] MEDS: ASPIRIN 81MG CHEWABLE TABLET 324 MG PO (11:59)
[2023-06-25 12:18] LABS: Basophils # 0.1 K/mm3 (0-0.2); Basophils % 0.6 % (0.1-2.0); Eosinophils # 0.1 K/mm3 (0.0-0.4); Hematocrit 43.8 % (42.0-52.0); Hemoglobin 14.4 g/dL (14.1-18.0); Lymphocytes # 3.3 K/mm3 (0.7-4.5); Mean Corpuscular HGB Conc 32.9 g/dL (31.8-35.4); Mean Corpuscular Hemoglobin 33.7 pg (27.0-31.2); Mean Corpuscular Volume 102.6 fl (80-94); Mean Platelet Volume 8.2 fl (7.4-10.4); Monocytes # 0.9 K/mm3 (0.1-1.0); Neutrophils # 5.9 K/mm3 (1.8-7.8); Neutrophils % 57.4 % (37.0-80.0); Platelet Count 348 K/mm3 (142-424); Red Blood Count 4.27 M/mm3 (4.60-6.20); Red Cell Distribution Width 13.4 % (11.5-17.5); White Blood Count 10.4 K/mm3 (4.8-10.8)
--- NOTE | 2023-06-25 12:20 | PC.NURSE ---
pt resting in bed. reports improvement in chest pain. family @ bedside
[2023-06-25 12:23] LABS: Chloride 107 mmol/L (98-107); Potassium 4.4 mmoL/L (3.5-5.1); Sodium 141 mmol/L (136-145)
[2023-06-25 12:25] LABS: Blood Urea Nitrogen 18 mg/dl (9-20); Creatinine Clearance Estimated 47 mL/min (50-200); Estimated Glomerular Filt Rate 49 ml/min (>60)
[2023-06-25 12:26] LABS: Alanine Aminotransferase 22 U/L (12-78); Albumin Level 4.5 g/dl (3.5-5.0); Albumin/Globulin Ratio 1.5 (1.1-1.8); Alkaline Phosphatase 79 U/L (38-126); Anion Gap 6.4 mEq/L (5-15); Aspartate Amino Transferase 30 U/L (17-59); Bilirubin,Total 0.5 mg/dl (0.2-1.3); Calcium 9.5 mg/dl (8.4-10.2); Carbon Dioxide 32 mmol/L (22.0-30.0); GFR (African American) 59 ML/MIN (>60); Glucose 96 mg/dl (74-100); Total Protein,Serum 7.5 g/dl (6.3-8.2)
[2023-06-25 12:40] LABS: Troponin I < 0.01 ng/ml (0.00-0.034)
--- NOTE | 2023-06-25 12:59 | PC.NURSE ---
Pt resting quietly. No needs voiced. call light within reach.
--- NOTE | 2023-06-25 13:56 | PC.NURSE ---
Rounded on pt. Warm blanket provided and bed adjusted per request. No other needs voiced, visitors at BS and call light within reach.
[2023-06-25] MEDS: MORPHINE 2MG/ML SYRINGE 2 MG IV (14:23)
[2023-06-25] MEDS: ONDANSETRON 4MG/2ML VIAL 4 MG IV (14:23)
[2023-06-25] MEDS: BELLADONNA ALKALOIDS 60 ML ML PO (14:23)
[2023-06-25 15:29] LABS: Troponin I 0.02 ng/ml (0.00-0.034)
--- NOTE | 2023-06-25 15:38 | PC.NURSE ---
DR LOCKE PAGED
--- NOTE | 2023-06-25 15:39 | PC.NURSE ---
DR COLVIN SPEAKING WITH DR LOCKE
--- NOTE | 2023-06-25 15:42 | PC.NURSE ---
DR COLVIN SPEAKING WITH DR PECK FOR ADMISSION
--- NOTE | 2023-06-25 15:44 | PC.NURSE ---
[employer] NOTIFIED OF ADMISSION
--- NOTE | 2023-06-25 15:46 | PC.NURSE ---
Dr. Leary at bedside
--- NOTE | 2023-06-25 16:06 | P.HP_ITS ---
History of Present Illness *Admission Date: 06/25/23 *Reason for visit:: chest pain *History of present illness: Mr. Longoria is a 78-year-old male with history of Parkinson's with dementia, angina, hyperlipidemia, hypertension, BPH who presented to the ER with onset of chest pain/upper abdominal pain this morning. Patient states, with the assistance of his spouse because he forgets minor details, that he had upper abdominal pain that radiated to his back and his chest that occurred this morning after eating breakfast. He was on his way to [employer] and almost did not go to [employer] because the onset of pain. States more severe than pain he had in the past. Similar episode about a week ago. Because of the recurrence, recommended he come to the hospital for further evaluation. Pain described as pressure-like over his chest. Reported in the ER that radiated down his right arm but did not report this to me on my evaluation. He gets this occasionally. Describes it mainly after eating however and at rest. Denies having pain with exertion. Denies nausea, fever, chills, shortness of breath. Last cardiac workup was a few years ago (approximately 3) with recommendation of medical management for his heart disease at that time. Blood pressure noted to be elevated today as well. Workup in the ER with nonactionable 0 and 3-hour troponins. EKG showed no ischemic changes. Given medical history however, cardiology was consulted and recommended admission for chest pain rule out. Medicine consulted for admission. On further evaluation, patient eating dinner at time of interview. His chest pain-free. Upon walking out of the room however he developed an episode of pain. No changes noted on telemetry and pain resolved with drinking water. Stable on room air. No edema on exam. Pleasant on interview. Reports last bowel movement 2 days ago, struggles with constipation PFSH [facility] Disclaimer: The information contained in this section may have been updated after the patient was seen, as this information can be updated by other users. Medical History Bilateral carotid bruits CAD (coronary artery disease) Carotid artery stenosis Dyspnea Ex-smoker HLD (hyperlipidemia) HTN (hypertension) Parkinson disease Sinus bradycardia Unstable angina Surgical History History of carpal tunnel surgery of left wrist Family History Coronary artery disease Cancer Hypertension Stroke Social History Smoking Status: Former smoker second hand exposure: No alcohol intake: never substance use type: denies use current occupational status: retired Travel in the last 8 weeks: None household members: spouse housing: house caffeine: Yes Review of Systems Review of Systems Review of systems (narrative): 14 point review of systems performed, pertinent positives and negatives as per [facility] Meds Home Medications and Allergies Home Medications Medication Instructions Recorded Confirmed Type aspirin 81 mg chewable tablet 81 mg PO DAILY Heart disease 08/09/19 06/25/23 History benazepril 40 mg tablet 40 mg PO DAILY High blood pressure 08/09/19 06/25/23 History cyanocobalamin (vitamin B-12) 5,000 mcg PO DAILY Supplement 09/23/20 06/25/23 History 5,000 mcg disintegrating tablet multivitamin 1 each PO DAILY Supplement 09/23/20 06/25/23 History ascorbate calcium (vitamin C) 500 500 mg PO DAILY Supplement 11/17/20 06/25/23 History mg tablet tamsulosin 0.4 mg capsule 0.4 mg PO HS 05/10/22 06/25/23 History pimavanserin 34 mg capsule 34 mg PO DAILY parkinson's related 01/05/23 06/25/23 Rx (Nuplazid) hallucinations #30 caps metoprolol tartrate 25 mg tablet 6.25 mg PO DAILY 30 days #8 tabs 03/28/23 06/25/23 Rx amlodipine 2.5 mg tablet See Rx Instructions .Route 05/17/23 06/25/23 Rx .COMPLEX #90 tabs ranolazine 500 mg tablet,extended See Rx Instructions .Route 05/24/23 06/25/23 Rx release,12 hr .COMPLEX #90 tabs New Prescriptions to Start Prescriptions: Allergies Allergy/AdvReac Type Severity Reaction Status Date / Time isosorbide [From Imdur] AdvReac Intermediate Verified 06/13/23 13:19 Exam Data for Last 24 hours Vital signs and Labs for Last 24 Hours: Temp Pulse Resp BP Pulse Ox O2 Del Method 97.8 F 48 L 16 158/80 H 96 Room Air 06/25/23 11:47 06/25/23 15:01 06/25/23 15:01 06/25/23 15:01 06/25/23 15:01 06/25/23 13:01 Laboratory Results - last 24 hr 06/25/23 11:55: WBC 10.4, RBC 4.27 L, Hgb 14.4, Hct 43.8, MCV 102.6 H, MCH 33.7 H, MCHC 32.9, RDW 13.4, Plt Count 348, MPV 8.2, Neut % (Auto) 57.4, Lymph % (Auto) 32.0, [place] % (Auto) 9.0, Eos % (Auto) 1.0, Baso % (Auto) 0.6, Neut # (Auto) 5.9, Lymph # (Auto) 3.3, [place] # (Auto) 0.9, Eos # (Auto) 0.1, Baso # (Auto) 0.1, Sodium 141, Potassium 4.4, Chloride 107, Carbon Dioxide 32 H, Anion Gap 6.4, BUN 18, Creatinine 1.40 H, Estimated Creat Clear 47, Estimated GFR 49 L , Est GFR ( Amer) 59, Glucose 96, Calcium 9.5, Total Bilirubin 0.5, AST 30, ALT 22, Alkaline Phosphatase 79, Troponin I < 0.01, Total Protein 7.5, Albumin 4.5, Globulin 3.0, Albumin/Globulin Ratio 1.5 06/25/23 14:50: Troponin I 0.02 I & O for Last 24 hours: Intake & Output 06/22/23 06/23/23 06/24/23 06/25/23 23:59 23:59 23:59 23:59 Weight 75.75 kg Constitutional Constitutional: no acute distress, average body habitus, chronically ill appearing and cooperative *Routine HEENT Exam Head: Present normocephalic and atraumatic Eye: Present EOMI and PERRL ENT: Present mucous membranes moist *Routine Neck Exam Neck: Present supple *Routine Respiratory Exam Respiratory: Present CTA bilaterally; Absent rhonchi, wheezes or crackles *Routine Cardiovascular Exam Cardiovascular: Present RRR *Routine Abdominal Exam Abdominal: Present soft, normoactive bowel sounds and tenderness (Nonfocal, denies epigastric or left upper quadrant pain but flinches with deep palpation.) *Routine Rectal Exam Rectal:: deferred *Routine Genitalia Exam Genitalia:: deferred *Routine Extremities Exam Extremities: Absent cyanosis, clubbing or edema Routine Back/Spine/Pelvis Exam Back/Spine: Absent CVA tenderness *Routine Skin Exam Skin: Present dry and warm; Absent rash *Routine Neurological Exam Neurological: Present alert, oriented X3, moving all extremities and tremors; Absent altered mental status Assessment and Plan *Assessment and plan (1) Unstable angina: Status: Acute Category: Medical Code(s): I20.0 - Unstable angina (2) (HFpEF) heart failure with preserved ejection fraction: Status: Acute Category: Medical Code(s): I50.30 - Unspecified diastolic (congestive) heart failure (3) CAD (coronary artery disease): Status: Chronic Qualifiers: Associated angina: with other forms of angina Coronary Disease- Associated Artery/Lesion type: [place] artery [place] vs. transplanted heart: [place] heart Qualified Code(s): I25.118 - Atherosclerotic heart disease of [place] coronary artery with other forms of angina pectoris Category: Medical Code(s): I25.10 - Atherosclerotic heart disease of [place] coronary artery without angina pectoris (4) Adjustment disorder: Status: Acute Qualifiers: Adjustment disorder type: with mixed disturbance of emotions and conduct Qualified Code(s): F43.25 - Adjustment disorder with mixed disturbance of emotions and conduct Category: Medical Code(s): F43.20 - Adjustment disorder, unspecified (5) REM behavioral disorder: Status: Chronic Category: Medical Code(s): G47.52 - REM sleep behavior disorder (6) Memory loss: Status: Chronic Category: Medical Code(s): R41.3 - Other amnesia (7) Parkinsonian syndrome: Status: Chronic Qualifiers: Parkinsonism type: unspecified Qualified Code(s): G20 - Parkinson's disease Category: Medical Code(s): G20 - Parkinson's disease (8) HLD (hyperlipidemia): Status: Chronic Qualifiers: Hyperlipidemia type: unspecified Qualified Code(s): E78.5 - Hyperlipidemia, unspecified Category: Medical Code(s): E78.5 - Hyperlipidemia, unspecified (9) HTN (hypertension): Status: Chronic Qualifiers: Hypertension type: essential hypertension Qualified Code(s): I10 - Essential (primary) hypertension Category: Medical Code(s): I10 - Essential (primary) hypertension (10) Ex-smoker: Status: Chronic Category: Social Hx Code(s): Z87.891 - Personal history of nicotine dependence Plan 78-year-old male who presented with onset of chest pain this morning. Workup in the ER with no overt ischemic changes but has significant risk factors. Discussed case with ER physician, request admission for chest pain rule out and further observation. Medicine agreed to admit. Pain after eating, recurred after admission. Strong concern for noncardiac etiology such as esophagitis, hiatal hernia, GERD. Will continue to proceed with cardiology eval. Treat medically for GERD and constipation. Monitor overnight. Problems addressed as follows: Chest pain -Unclear etiology, differential diagnosis includes cardiac, GI, constipation. Monitor on telemetry overnight. Cardiology consulted -First 2 troponins negative, third troponin still pending. -Echo pending for morning. Right upper quadrant ultrasound pending. -Initiate on pantoprazole 40 mg nightly, Tums as needed 4 times a day for heartburn/pain with swallowing -Initiate bowel regimen with docusate/senna twice daily -Blood pressure still elevated, continue amlodipine increased to 5 mg daily. -Continue aspirin 81 Samara daily, lisinopril 40 mg daily as formulary conversion for home benazepril, metoprolol 6.25 mg daily, and continue ranolazine 500 mg twice daily. Will trial isosorbide 30 mg daily, has reported allergy but family cannot remember what it is and does not remember him ever having anaphylaxis to medication. -Will consider outpatient referral to GI or surgery for EGD if cardiac workup and ultrasounds negative Parkinson's/hallucinations: Continue pimavanserin 34 mg daily BPH: Continue home tamsulosin 0.4 mg nightly full code NPO
--- NOTE | 2023-06-25 16:08 | PC.NURSE ---
Called report to Katie ASHTON on Med/Surg
[2023-06-25] MEDS: ENOXAPARIN 100MG/ML SYRINGE 75 MG SQ (16:27)
--- NOTE | 2023-06-25 16:27 | PC.NURSE ---
Med/Surg staff at bedside to take pt to 2nd floor.
[2023-06-25 18:59] LABS: Troponin I < 0.01 ng/ml (0.00-0.034)
[2023-06-25] MEDS: SENNOSIDES 8.6MG/DOCUSATE 50MG TABLET 1 TAB PO (20:32)
[2023-06-25] MEDS: PANTOPRAZOLE 40MG TABLET 40 MG PO (20:32)
[2023-06-25] MEDS: RANOLAZINE 500MG ER TABLET 500 MG PO (20:33)
[2023-06-25] MEDS: TAMSULOSIN 0.4MG CAPSULE 0.400000000000000022 MG PO (20:33)
[2023-06-26] VITALS: BP 141/76; PULSE 46; RESP 16; TEMP 37.2; O2SAT 95
[2023-06-26 02:00] VITALS: PULSE 50
[2023-06-26] MEDS: ENOXAPARIN 100MG/ML SYRINGE 75 MG SQ (03:11)
[2023-06-26 04:00] VITALS: BP 144/81; PULSE 47; RESP 18; TEMP 36.7; O2SAT 96; BMI 26.1
--- NOTE | 2023-06-26 05:19 | PC.NURSE ---
Pt is alert and oriented and currently tolerating RA well. Pt has rested well this shift and denies pain. Pt has a moderate tremor due to PK disease. Pt is currently NPO and has been since MD. Pt denies needs at this time.
[2023-06-26 06:00] VITALS: PULSE 50
--- NOTE | 2023-06-26 06:00 | US_ITS ---
FINAL REPORT TECHNIQUE: Sonographic images of the right upper quadrant were obtained. CLINICAL HISTORY: galbladder pain, post prandial pain COMPARISON: None FINDINGS: PANCREAS: The pancreas is partially obscured by overlying bowel gas.. LIVER: Homogeneous. No focal hepatic lesion. No intrahepatic biliary ductal dilatation. GALLBLADDER: No gallstones. No gallbladder wall thickening or pericholecystic fluid. COMMON DUCT: 7 mm. Normal for age. RIGHT KIDNEY: The right kidney measures 8 cm. There is no hydronephrosis or stone. There is a hypoechoic area in the lower pole of the left kidney 1.35 cm in diameter, consistent with a cyst. In addition, there is cortical thinning noted in the right kidney. FREE FLUID: None. IMPRESSION: Cortical thinning of the right kidney with a small 1.35 cm renal cyst. Otherwise unremarkable ultrasound of the right upper quadrant. Reviewed, Interpreted and Dictated by Yudy Woo MD Transcribed by Padmini Sumner Authenticated and [facility]
[2023-06-26 06:44] LABS: Basophils % 0.2 % (0.1-2.0); Eosinophils # 0.1 K/mm3 (0.0-0.4); Eosinophils % 1.2 % (0.1-12.0); Hematocrit 39.5 % (42.0-52.0); Lymphocytes # 2.8 K/mm3 (0.7-4.5); Mean Corpuscular HGB Conc 32.7 g/dL (31.8-35.4); Mean Corpuscular Hemoglobin 33.4 pg (27.0-31.2); Mean Corpuscular Volume 102.2 fl (80-94); Monocytes # 0.5 K/mm3 (0.1-1.0); Monocytes % 5.8 % (1.7-9.3); Neutrophils # 4.5 K/mm3 (1.8-7.8); Neutrophils % 56.8 % (37.0-80.0); Platelet Count 323 K/mm3 (142-424); Red Blood Count 3.87 M/mm3 (4.60-6.20); Red Cell Distribution Width 13.6 % (11.5-17.5); White Blood Count 7.9 K/mm3 (4.8-10.8)
[2023-06-26 06:50] LABS: Chloride 108 mmol/L (98-107); Potassium 4.2 mmoL/L (3.5-5.1); Sodium 139 mmol/L (136-145)
[2023-06-26 06:51] LABS: Hemoglobin 12.9 g/dL (14.1-18.0)
[2023-06-26 06:52] LABS: Blood Urea Nitrogen 18 mg/dl (9-20); Creatinine Clearance Estimated 46 mL/min (50-200); Estimated Glomerular Filt Rate 45 ml/min (>60); GFR (African American) 55 ML/MIN (>60)
[2023-06-26 06:53] LABS: Alanine Aminotransferase 17 U/L (12-78); Albumin Level 3.8 g/dl (3.5-5.0); Albumin/Globulin Ratio 1.5 (1.1-1.8); Alkaline Phosphatase 74 U/L (38-126); Anion Gap 3.2 mEq/L (5-15); Aspartate Amino Transferase 26 U/L (17-59); Bilirubin,Total 0.6 mg/dl (0.2-1.3); Carbon Dioxide 32 mmol/L (22.0-30.0); Cholesterol 201 mg/dl (140-200); Globulin 2.6 g/dL (1.3-3.2); Glucose 100 mg/dl (74-100); Magnesium 2.2 mg/dl (1.6-2.3); Total Protein,Serum 6.4 g/dl (6.3-8.2); Triglycerides 151 mg/dl (30-150); VLDL Cholesterol 30 mg/dL (0-40)
[2023-06-26 06:54] LABS: HDL Cholesterol 25 mg/dl (40-60)
[2023-06-26 07:10] LABS: Direct LDL Cholesterol 120.18 mg/dL (100-129)
--- NOTE | 2023-06-26 07:24 | HMH.PHAINT1 ---
Pharmacy Intervention Comments: Verified home medications using external fill history and spoke with patient's at bedside.
[2023-06-26 08:00] VITALS: BP 116/72; PULSE 54; PULSE 55; RESP 18; TEMP 36.9; O2SAT 96
[2023-06-26] MEDS: PIMAVANSERIN 34 MG 34 EACH PO (08:55)
[2023-06-26] MEDS: LISINOPRIL 20MG TABLET 40 MG PO (08:55)
[2023-06-26] MEDS: AMLODIPINE 5MG TABLET 5 MG PO (08:55)
[2023-06-26] MEDS: ASPIRIN 81MG CHEWABLE TABLET 81 MG PO (08:55)
[2023-06-26] MEDS: ISOSORBIDE MONO 30MG TAB.ER.24H 30 MG PO (08:55)
[2023-06-26] MEDS: SENNOSIDES 8.6MG/DOCUSATE 50MG TABLET 1 TAB PO (09:29)
[2023-06-26] MEDS: RANOLAZINE 500MG ER TABLET 500 MG PO (09:29)
[2023-06-26] MEDS: POLYETHYLENE GLYCOL 3350 17 GM PACKET PO (09:47)
--- NOTE | 2023-06-26 10:10 | P.CONCA_ITS ---
History of Present Illness History of Present Illness Consult date: 06/26/23 Requesting physician: Lasha Torres Consult reason: chest pain Chief complaint: Non-cardiac chest pain Additional Medical History:: 1. CAD A. [facility], 10/2019, mild CAD 2. Parkinson's disease with dementia A. On Nuplazid B. Followed by neurology (Georgina) 3. Hypertension 4. Hyperlipidemia 5. Carotid artery disease less than 20% bilaterally History of present illness: Mr. Longoria is a 78-year-old male with history of Parkinson's with dementia, angina, hyperlipidemia, hypertension, BPH who presented to the ER with onset of chest pain/upper abdominal pain this morning. Patient states, with the assistance of his spouse because he forgets minor details, that he had upper abdominal pain that radiated to his back and his chest that occurred this morning after eating breakfast. He was on his way to [employer] and almost did not go to [employer] because the onset of pain. States more severe than pain he had in the past. Similar episode about a week ago. Because of the recurrence, recommended he come to the hospital for further evaluation. Pain described as pressure-like over his chest. Reported in the ER that radiated down his right arm but did not report this to me on my evaluation. He gets this occasionally. Describes it mainly after eating however and at rest. Denies having pain with exertion. Denies nausea, fever, chills, shortness of breath. Last cardiac workup was a few years ago (approximately 3) with recommendation of medical management for his heart disease at that time. Blood pressure noted to be elevated today as well. Workup in the ER with nonactionable 0 and 3-hour troponins. EKG showed no ischemic changes. Given medical history however, cardiology was consulted and recommended admission for chest pain rule out. Medicine consulted for admission. On further evaluation, patient eating dinner at time of interview. His chest pain-free. Upon walking out of the room however he developed an episode of pain. No changes noted on telemetry and pain resolved with drinking water. Stable on room air. No edema on exam. Pleasant on interview. Reports last bowel movement 2 days ago, struggles with constipation The above per Dr. Torres Events as noted above confirmed with the patient and his family. Chest pain seems to occur mainly after eating or drinking something cold. EKG this admission shows sinus bradycardia at 49 bpm with no acute ST segment changes. Troponins within normal limits Echocardiogram preliminary results show EF around 60% [facility] Disclaimer: The information contained in this section may have been updated after the patient was seen, as this information can be updated by other users. Medical History Bilateral carotid bruits CAD (coronary artery disease) Carotid artery stenosis Dyspnea Ex-smoker HLD (hyperlipidemia) HTN (hypertension) Parkinson disease Sinus bradycardia Unstable angina Surgical History History of carpal tunnel surgery of left wrist Family History Coronary artery disease Cancer Hypertension Stroke Social History Smoking Status: Former smoker second hand exposure: No alcohol intake: never substance use type: denies use current occupational status: retired Travel in the last 8 weeks: None household members: spouse housing: house caffeine: Yes Review of Systems Review of Systems Review of systems:: pertinent systems reviewed and negative unless documented below *Cardiovascular Cardiovascular: Denies chest pain and Denies dyspnea *Respiratory Respiratory: Reports cough and Denies dyspnea Exam Data for Last 24 hours Vital signs and Labs for Last 24 Hours: Temp Pulse Resp BP Pulse Ox O2 Del Method 98.5 F 54 L 18 116/72 96 Room Air 06/26/23 08:00 06/26/23 08:00 06/26/23 08:00 06/26/23 08:00 06/26/23 08:00 06/26/23 09:00 Laboratory Results - last 24 hr 06/25/23 11:55: WBC 10.4, RBC 4.27 L, Hgb 14.4, Hct 43.8, MCV 102.6 H, MCH 33.7 H, MCHC 32.9, RDW 13.4, Plt Count 348, MPV 8.2, Neut % (Auto) 57.4, Lymph % (Auto) 32.0, [place] % (Auto) 9.0, Eos % (Auto) 1.0, Baso % (Auto) 0.6, Neut # (Auto) 5.9, Lymph # (Auto) 3.3, [place] # (Auto) 0.9, Eos # (Auto) 0.1, Baso # (Auto) 0.1, Sodium 141, Potassium 4.4, Chloride 107, Carbon Dioxide 32 H, Anion Gap 6.4, BUN 18, Creatinine 1.40 H, Estimated Creat Clear 47, Estimated GFR 49 L , Est GFR ( Amer) 59, Glucose 96, Calcium 9.5, Total Bilirubin 0.5, AST 30, ALT 22, Alkaline Phosphatase 79, Troponin I < 0.01, Total Protein 7.5, Albumin 4.5, Globulin 3.0, Albumin/Globulin Ratio 1.5 06/25/23 14:50: Troponin I 0.02 06/25/23 18:05: Troponin I < 0.01 06/26/23 06:34: WBC 7.9, RBC 3.87 L, Hgb 12.9 L D, Hct 39.5 L, MCV 102.2 H, MCH 33.4 H, MCHC 32.7, RDW 13.6, Plt Count 323, MPV 8.0, Neut % (Auto) 56.8, Lymph % (Auto) 36.0, [place] % (Auto) 5.8, Eos % (Auto) 1.2, Baso % (Auto) 0.2, Neut # (Auto) 4.5, Lymph # (Auto) 2.8, [place] # (Auto) 0.5, Eos # (Auto) 0.1, Baso # (Auto) 0.0, Sodium 139, Potassium 4.2, Chloride 108 H, Carbon Dioxide 32 H, A nion Gap 3.2 L, BUN 18, Creatinine 1.50 H, Estimated Creat Clear 46, Estimated GFR 45 L, Est GFR ( Amer) 55 L, Glucose 100, Calcium 9.0, Magnesium 2.2, Total Bilirubin 0.6, AST 26, ALT 17, Alkaline Phosphatase 74, Total Protein 6.4, Albumin 3.8 D, Globulin 2.6, Albumin/Globulin Ratio 1.5, Triglycerides 151 H, Cholesterol 201 H, LDL Cholesterol Direct 120.18, VLDL Cholesterol 30, HDL Cholesterol 25 L, Cholesterol/HDL Ratio 8.0 H I & O for Last 24 hours: Intake & Output 06/23/23 06/24/23 06/25/23 06/26/23 11:59 11:59 11:59 11:59 Intake Total 660 / 660 Output Total 0 / 0 Balance 660 / 660 Weight 167 lb 172 lb 4 oz Constitutional Constitutional: no acute distress *Routine Respiratory Exam Respiratory: Present CTA bilaterally *Routine Cardiovascular Exam Cardiovascular: Present RRR; Absent murmur, gallop or rubs *Routine Extremities Exam Extremities: Absent edema *Routine Neurological Exam Neurological: Present alert and oriented X3 Meds Home Medications and Allergies Home Medications Medication Instructions Recorded Confirmed Type aspirin 81 mg chewable tablet 81 mg PO DAILY Heart disease 08/09/19 06/25/23 History benazepril 40 mg tablet 40 mg PO DAILY High blood pressure 08/09/19 06/25/23 History cyanocobalamin (vitamin B-12) 5,000 mcg PO DAILY Supplement 09/23/20 06/25/23 History 5,000 mcg disintegrating tablet multivitamin 1 each PO DAILY Supplement 09/23/20 06/25/23 History ascorbate calcium (vitamin C) 500 500 mg PO DAILY Supplement 11/17/20 06/25/23 History mg tablet tamsulosin 0.4 mg capsule 0.4 mg PO HS 05/10/22 06/25/23 History pimavanserin 34 mg capsule 34 mg PO DAILY parkinson's related 01/05/23 06/25/23 Rx (Nuplazid) hallucinations #30 caps isosorbide mononitrate 30 mg 30 mg PO DAILY 30 days #30 tabs 06/26/23 Rx tablet,extended release 24 hr pantoprazole 40 mg tablet,delayed 40 mg PO HS 30 days #30 tabs 06/26/23 Rx release polyethylene glycol 3350 17 gram 17 g PO DAILY 30 days #238 grams 06/26/23 Rx oral powder packet (Miralax) ranolazine 500 mg tablet,extended 500 mg PO DAILY 06/26/23 06/26/23 History release,12 hr sennosides 8.6 mg-docusate sodium 1 tab PO BID PRN constipation 30 06/26/23 Rx 50 mg tablet (Stimulant Laxative days #30 tabs Plus) New Prescriptions to Start Prescriptions: isosorbide mononitrate Lasha Torres pantoprazole Lasha Torres polyethylene glycol 3350 [Miralax] Lasha Torres sennosides-docusate sodium [Stimulant Laxative Plus] Lasha Torres Allergies Allergy/AdvReac Type Severity Reaction Status Date / Time isosorbide [From Imdur] AdvReac Intermediate Verified 06/13/23 13:19 Assessment and Plan *Assessment and plan (1) Chest pain: Status: Chronic Qualifiers: Chest pain type: unspecified Qualified Code(s): R07.9 - Chest pain, unspecified Category: Medical Code(s): R07.9 - Chest pain, unspecified (2) Sinus bradycardia: Status: Chronic Category: Medical Code(s): R00.1 - Bradycardia, unspecified (3) Parkinsonian syndrome: Status: Chronic Qualifiers: Parkinsonism type: unspecified Qualified Code(s): G20 - Parkinson's disease Category: Medical Code(s): G20 - Parkinson's disease (4) (HFpEF) heart failure with preserved ejection fraction: Status: Acute Qualifiers: Heart failure chronicity: chronic Qualified Code(s): I50.32 - Chronic diastolic (congestive) heart failure Category: Medical Code(s): I50.30 - Unspecified diastolic (congestive) heart failure (5) CAD (coronary artery disease): Status: Chronic Qualifiers: Associated angina: with other forms of angina Coronary Disease-As sociated Artery/Lesion type: [place] artery [place] vs. transplanted heart: [place] heart Qualified Code(s): I25.118 - Atherosclerotic heart disease of [place] coronary artery with other forms of angina pectoris Category: Medical Code(s): I25.10 - Atherosclerotic heart disease of [place] coronary artery without angina pectoris (6) Carotid artery stenosis: Status: Chronic Qualifiers: Laterality: bilateral Qualified Code(s): I65.23 - Occlusion and stenosis of bilateral carotid arteries Category: Medical Code(s): I65.29 - Occlusion and stenosis of unspecified carotid artery (7) HTN (hypertension): Status: Chronic Qualifiers: Hypertension type: essential hypertension Qualified Code(s): I10 - Essential (primary) hypertension Category: Medical Code(s): I10 - Essential (primary) hypertension (8) HLD (hyperlipidemia): Status: Chronic Qualifiers: Hyperlipidemia type: unspecified Qualified Code(s): E78.5 - Hyperlipidemia, unspecified Category: Medical Code(s): E78.5 - Hyperlipidemia, unspecified Plan 1. Chest pain felt to be noncardiac in origin. Likely related to either hiatal hernia or esophageal stricture. -Troponins normal x 3. -EKG without acute changes -Preliminary echocardiogram shows EF around 60% 2. Parkinson syndrome with dementia -On Nuplazid with QTc at 435 ms 3. Sinus bradycardia -Patient only taking tartrate once a day at 6.25 mg, therefore we will discontinue 4. History of hypertension -Continue benazepril and amlodipine 5. CAD, clinically stable 6. Hyperlipidemia, resume statin therapy Clinically stable from a cardiac standpoint for discharge home. Home medication recommendations: Benazepril 40 mg daily Aspirin 81 mg daily Amlodipine 2.5 mg daily Ranolazine ER 500 mg daily Isosorbide mononitrate 30 mg daily Follow-up in our office in 2 weeks. Consider discontinuation of ranolazine and isosorbide after GI workup complete.
--- NOTE | 2023-06-26 10:20 | EXP.DC.SUM ---
General Admission date:: 06/25/23 Discharge date: 06/26/23 HPI HPI HPI: Mr. Longoria is a 78-year-old male with history of Parkinson's with dementia, angina, hyperlipidemia, hypertension, BPH who presented to the ER with onset of chest pain/upper abdominal pain this morning. Patient states, with the assistance of his spouse because he forgets minor details, that he had upper abdominal pain that radiated to his back and his chest that occurred this morning after eating breakfast. He was on his way to [place] and almost did not go to [place] because the onset of pain. States more severe than pain he had in the past. Similar episode about a week ago. Because of the recurrence, recommended he come to the hospital for further evaluation. Pain described as pressure-like over his chest. Reported in the ER that radiated down his right arm but did not report this to me on my evaluation. He gets this occasionally. Describes it mainly after eating however and at rest. Denies having pain with exertion. Denies nausea, fever, chills, shortness of breath. Last cardiac workup was a few years ago (approximately 3) with recommendation of medical management for his heart disease at that time. Blood pressure noted to be elevated today as well. Workup in the ER with nonactionable 0 and 3-hour troponins. EKG showed no ischemic changes. Given medical history however, cardiology was consulted and recommended admission for chest pain rule out. Medicine consulted for admission. On further evaluation, patient eating dinner at time of interview. His chest pain-free. Upon walking out of the room however he developed an episode of pain. No changes noted on telemetry and pain resolved with drinking water. Stable on room air. No edema on exam. Pleasant on interview. Reports last bowel movement 2 days ago, struggles with constipation Hospital Course Hospital Course Hospital Course: 78-year-old male who presented with onset of chest pain this morning. Workup in the ER with no overt ischemic changes but has significant risk factors. Discussed case with ER physician, request admission for chest pain rule out and further observation. Medicine agreed to admit. Pain after eating, recurred after admission. Strong concern for non-cardiac etiology such as esophagitis, hiatal hernia, GERD. Will continue to proceed with cardiology eval. Treated medically for GERD and constipation. Monitored overnight. Recurrent pain after eating. No dyspnea. Stable for LA home. Plan for further eval as outpatient. Problems addressed as follows: Chest pain -Unclear etiology, differential diagnosis includes cardiac, GI, constipation, among other etiologies. Monitored on telemetry overnight. Cardiology consulted. No EKG changes or elevation in troponins. Echo obtained ewith the following results: Normal biventricular systolic function. Mild AI. RUQ Ultrasound obtained with the following: Cortical thinning of the right kidney with a small 1.35 cm renal cyst. Otherwise unremarkable ultrasound of the right upper quadrant. Given clinical stability, unremarkable cardiac workup, recommend discharge home with further management as an outpatient. Continue pantoprazole 40 mg nightly. Tums as needed for heartburn or abdominal pain. Recommend initiating bowel regimen given concern for constipation with docusate/senna twice daily. Given persistent elevation of blood pressure, increased amlodipine to 5 mg daily. Continue aspirin 81 mg daily, benazepril, metoprolol 6.25 mg daily, and continue ranolazine 500 mg twice daily. Initiated on isosorbide 30 mg daily, has reported allergy but family cannot remember what it is and does not remember him ever having anaphylaxis to medication. Tolerated well. Recommend outpatient referral to surgery for possible EGD to further evaluate esophageal/gastric etiology of pain. Parkinson's/hallucinations: Continue pimavanserin 34 mg daily BPH: Continue home tamsulosin 0.4 mg nightly Total time spent on discharge 32 minutes in counseling, documentation, chart review, and direct care with patient. Exam Data for Last 24 hours Vital signs and Labs for Last 24 Hours: Temp Pulse Resp BP Pulse Ox O2 Del Method 98.5 F 54 L 18 116/72 96 Room Air 06/26/23 08:00 06/26/23 08:00 06/26/23 08:00 06/26/23 08:00 06/26/23 08:00 06/26/23 09:00 Laboratory Results - last 24 hr 06/25/23 11:55: WBC 10.4, RBC 4.27 L, Hgb 14.4, Hct 43.8, MCV 102.6 H, MCH 33.7 H, MCHC 32.9, RDW 13.4, Plt Count 348, MPV 8.2, Neut % (Auto) 57.4, Lymph % (Auto) 32.0, [place] % (Auto) 9.0, Eos % (Auto) 1.0, Baso % (Auto) 0.6, Neut # (Auto) 5.9, Lymph # (Auto) 3.3, [place] # (Auto) 0.9, Eos # (Auto) 0.1, Baso # (Auto) 0.1, Sodium 141, Potassium 4.4, Chloride 107, Carbon Dioxide 32 H, Anion Gap 6.4, BUN 18, Creatinine 1.40 H, Estimated Creat Clear 47, Estimated GFR 49 L, Est GFR ( Amer) 59, Glucose 96, Calcium 9.5, Total Bilirubin 0.5, AST 30, ALT 22, Alkaline Phosphatase 79, Troponin I < 0.01, Total Protein 7.5, Albumin 4.5, Globulin 3.0, Albumin/Globulin Ratio 1.5 06/25/23 14:50: Troponin I 0.02 06/25/23 18:05: Troponin I < 0.01 06/26/23 06:34: WBC 7.9, RBC 3.87 L, Hgb 12.9 L D, Hct 39.5 L, MCV 102.2 H, MCH 33.4 H, MCHC 32.7, RDW 13.6, Plt Count 323, MPV 8.0, Neut % (Auto) 56.8, Lymph % (Auto) 36.0, [place] % (Auto) 5.8, Eos % (Auto) 1.2, Baso % (Auto) 0.2, Neut # (Auto) 4.5, Lymph # (Auto) 2.8, [place] # (Auto) 0.5, Eos # (Auto) 0.1, Baso # (Auto) 0.0, Sodium 139, Potassium 4.2, Chloride 108 H, Carbon Dioxide 32 H, Anion Gap 3.2 L, BUN 18, Creatinine 1.50 H, Estimated Creat Clear 46, Estimated GFR 45 L, Est GFR ( Amer) 55 L, Glucose 100, Calcium 9.0, Magnesium 2.2, Total Bilirubin 0.6, AST 26, ALT 17, Alkaline Phosphatase 74, Total Protein 6.4, Albumin 3.8 D, Globulin 2.6, Albumin/Globulin Ratio 1.5, Triglycerides 151 H, Cholesterol 201 H, LDL Cholesterol Direct 120.18, VLDL Cholesterol 30, HDL Cholesterol 25 L, Cholesterol/HDL Ratio 8.0 H I & O for Last 24 hours: Intake & Output 02/06/24/23 06/25/23 06/26/23 23:59 23:59 23:59 23:59 Intake Total 660 / 660 Output Total 0 / 0 0 / 0 Balance 660 / 660 0 / 0 Weight 78.642 kg 78.131 kg Constitutional Constitutional: no acute distress *Routine HEENT Exam Head: Present normocephalic Eye: Present EOMI and PERRL ENT: Present mucous membranes moist *Routine Neck Exam Neck: Present supple; Absent lymphadenopathy *Routine Respiratory Exam Respiratory: Present CTA bilaterally *Routine Cardiovascular Exam Cardiovascular: Present RRR and bradycardia *Routine Abdominal Exam Abdominal: Present soft, normoactive bowel sounds and tenderness (mild upper abdomen) *Routine Rectal Exam Patient deferred: visual exam *Routine Exam Patient deferred: penile exam *Routine Extremities Exam Extremities: Absent cyanosis, clubbing or edema *Routine Skin Exam Skin: Present warm; Absent rash *Routine Neurological Exam Neurological: Present alert, oriented X3, moving all extremities and tremors; Absent altered mental status Comments: pleasant. Results Data Completed and Pending Labs on day of discharge: Labs from last 24 hours 06/26/23 06/25/23 06/25/23 06:34 18:05 14:50 WBC 7.9 RBC 3.87 L Hgb 12.9 L D Hct 39.5 L MCV 102.2 H MCH 33.4 H MCHC 32.7 RDW 13.6 Plt Count 323 MPV 8.0 Neut % (Auto) 56.8 Lymph % (Auto) 36.0 [place] % (Auto) 5.8 Eos % (Auto) 1.2 Baso % (Auto) 0.2 Neut # (Auto) 4.5 Lymph # (Auto) 2.8 [place] # (Auto) 0.5 Eos # (Auto) 0.1 Baso # (Auto) 0.0 Sodium 139 Potassium 4.2 Chloride 108 H Carbon Dioxide 32 H Anion Gap 3.2 L BUN 18 Creatinine 1.50 H Estimated Creat Clear 46 Estimated GFR 45 L Est GFR ( Amer) 55 L Glucose 100 Calcium 9.0 Magnesium 2.2 Total Bilirubin 0.6 AST 26 ALT 17 Alkaline Phosphatase 74 Troponin I < 0.01 0.02 Total Protein 6.4 Albumin 3.8 D Globulin 2.6 Albumin/Globulin Ratio 1.5 Triglycerides 151 H Cholesterol 201 H LDL Cholesterol Direct 120.18 VLDL Cholesterol 30 HDL Cholesterol 25 L Cholesterol/HDL Ratio 8.0 H 06/25/ 11:55 WBC 10.4 RBC 4.27 L Hgb 14.4 Hct 43.8 MCV 102.6 H MCH 33.7 H MCHC 32.9 RDW 13.4 Plt Count 348 MPV 8.2 Neut % (Auto) 57.4 Lymph % (Auto) 32.0 [place] % (Auto) 9.0 Eos % (Auto) 1.0 Baso % (Auto) 0.6 Neut # (Auto) 5.9 Lymph # (Auto) 3.3 [place] # (Auto) 0.9 Eos # (Auto) 0.1 Baso # (Auto) 0.1 Sodium 141 Potassium 4.4 Chloride 107 Carbon Dioxide 32 H Anion Gap 6.4 BUN 18 Creatinine 1.40 H Estimated Creat Clear 47 Estimated GFR 49 L Est GFR ( Amer) 59 Glucose 96 Calcium 9.5 Magnesium Total Bilirubin 0.5 AST 30 ALT 22 Alkaline Phosphatase 79 Troponin I < 0.01 Total Protein 7.5 Albumin 4.5 Globulin 3.0 Albumin/Globulin Ratio 1.5 Triglycerides Cholesterol LDL Cholesterol Direct VLDL Cholesterol HDL Cholesterol Cholesterol/HDL Ratio DS: Diagnosis Discharge Diagnosis (1) Unstable angina: Status: Acute Code(s): I20.0 - Unstable angina (2) (HFpEF) heart failure with preserved ejection fraction: Status: Acute Code(s): I50.30 - Unspecified diastolic (congestive) heart failure (3) CAD (coronary artery disease): Status: Chronic Code(s): I25.10 - Atherosclerotic heart disease of [place] coronary artery without angina pectoris Qualifiers: Associated angina: with other forms of angina Coronary Disease-Associated Artery/Lesion type: [place] artery Circle vs. transplanted heart: [place] heart Qualified Code(s): I25.118 - Atherosclerotic heart disease of [place] coronary artery with other forms of angina pectoris (4) Adjustment disorder: Status: Acute Code(s): F43.20 - Adjustment disorder, unspecified Qualifiers: Adjustment disorder type: with mixed disturbance of emotions and conduct Qualified Code(s): F43.25 - Adjustment disorder with mixed disturbance of emotions and conduct (5) REM behavioral disorder: Status: Chronic Code(s): G47.52 - REM sleep behavior disorder (6) Memory loss: Status: Chronic Code(s): R41.3 - Other amnesia (7) Parkinsonian syndrome: Status: Chronic Code(s): G20 - Parkinson's disease Qualifiers: Parkinsonism type: unspecified Qualified Code(s): G20 - Parkinson's disease (8) HLD (hyperlipidemia): Status: Chronic Code(s): E78.5 - Hyperlipidemia, unspecified Qualifiers: Hyperlipidemia type: unspecified Qualified Code(s): E78.5 - Hyperlipidemia, unspecified (9) HTN (hypertension): Status: Chronic Code(s): I10 - Essential (primary) hypertension Qualifiers: Hypertension type: essential hypertension Qualified Code(s): I10 - Essential (primary) hypertension (10) Ex-smoker: Status: Chronic Code(s): Z87.891 - Personal history of nicotine dependence Meds Home Medications and Allergies Home Medications Medication Instructions Recorded Confirmed Type aspirin 81 mg chewable tablet 81 mg PO DAILY Heart disease 08/09/19 06/25/23 History benazepril 40 mg tablet 40 mg PO DAILY High blood pressure 08/09/19 06/25/23 History cyanocobalamin (vitamin B-12) 5,000 mcg PO DAILY Supplement 09/23/20 06/25/23 History 5,000 mcg disintegrating tablet multivitamin 1 each PO DAILY Supplement 09/23/20 06/25/23 History ascorbate calcium (vitamin C) 500 500 mg PO DAILY Supplement 11/17/20 06/25/23 History mg tablet tamsulosin 0.4 mg capsule 0.4 mg PO HS 05/10/22 06/25/23 History pimavanserin 34 mg capsule 34 mg PO DAILY parkinson's related 01/05/23 06/25/23 Rx (Nuplazid) hallucinations #30 caps isosorbide mononitrate 30 mg 30 mg PO DAILY 30 days #30 tabs 06/26/23 Rx tablet,extended release 24 hr pantoprazole 40 mg tablet,delayed 40 mg PO HS 30 days #30 tabs 06/26/23 Rx release polyethylene glycol 3350 17 gram 17 g PO DAILY 30 days #238 grams 06/26/23 Rx oral powder packet (Miralax) ranolazine 500 mg tablet,extended 500 mg PO DAILY 06/26/23 06/26/23 History release,12 hr sennosides 8.6 mg-docusate sodium 1 tab PO BID PRN constipation 30 06/26/23 Rx 50 mg tablet (Stimulant Laxative days #30 tabs Plus) New Prescriptions to Start Prescriptions: isosorbide mononitrate Lasha Torres pantoprazole Lasha Torres polyethylene glycol 3350 [Miralax] Lasha Torres sennosides-docusate sodium [Stimulant Laxative Plus] Lasha Torres Allergies Allergy/AdvReac Type Severity Reaction Status Date / Time isosorbide [From Imdur] AdvReac Intermediate Verified 06/13/23 13:19 Discharge Plan Disposition Patient Disposition: Home, Self-Care Condition: Good Follow up Plan Follow up with: Chuy Quiroz MD [Staff Physician] - 06/29/23 1:00 pm (Needs EGD for sensation of food getting stuck) Poncho Lawrence MD [Primary Care Provider] - 07/03/23 10:10 am Moody Santa MD [Staff Physician] - 07/11/23 3:00 pm Prescriptions/Medication Reconciliation: New polyethylene glycol 3350 [Miralax] 17 gram Powder In Packet 17 g PO DAILY 30 Days Qty: 238 0RF isosorbide mononitrate 30 mg Tablet Extended Release 24 Hr 30 mg PO DAILY 30 Days Qty: 30 0RF sennosides-docusate sodium [Stimulant Laxative Plus] 8.6-50 mg Tablet 1 tab PO BID PRN (Reason: constipation) 30 Days Qty: 30 0RF pantoprazole 40 mg Tablet,Delayed Release (Dr/Ec) 40 mg PO HS 30 Days Qty: 30 0RF Continued benazepril 40 mg tablet 40 mg PO DAILY Patient Comments: TAKE 1 TABLET BY MOUTH EVERY MORNING FOR BLOOD PRESSURE aspirin 81 mg tablet,chewable 81 mg PO DAILY tamsulosin 0.4 mg capsule 0.4 mg PO HS Nuplazid 34 mg capsule 34 mg PO DAILY Qty: 30 5RF multivitamin 1 EACH tablet 1 each PO DAILY cyanocobalamin (vitamin B-12) 5,000 MCG tablet,disintegrating 5,000 mcg PO DAILY ranolazine 500 mg tablet extended release 12 hr 500 mg PO DAILY Patient Comments: TAKE 1 TABLET BY MOUTH ONCE DAILY FOR CHEST PAIN ascorbate calcium (vitamin C) 500 MG tablet 500 mg PO DAILY Discontinued metoprolol tartrate 25 mg tablet 6.25 mg PO DAILY 30 Days Qty: 8 2RF amlodipine 2.5 mg tablet 2.5 mg PO DAILY Patient Comments: TAKE 1 TABLET BY MOUTH ONCE DAILY Problem Reconciliation Problems Reviewed?: Yes Patient Discharge Instructions ACTIVITY: Continue current activity DIET: continue same diet Patient Instructions: DI for Heart Failure, DI for Angina Providers Primary Care Provider: Poncho Lawrence Admit Provider: Lasha Torres Attending Provider: Lasha Torres
--- NOTE | 2023-06-26 16:13 | CA_ITS ---
APPROVED REPORT EXAM: Comprehensive 2D, Doppler, and color-flow Echocardiogram Service Technician: Jasmine Davila CRT Ht: 5 ft 9 in Wt: 167lbs BSA: 1.91 BP: 58/80 mmHg Indications: Chest Pain, Congestive Heart Failure, Hyperlipidemia, Hypertension/HDD, parkinson,dementia M-Mode Dimensions RVDd 2.97 cm (0.9-2.6) LA Diam 3.84 cm (1.9-4.0) LVDd 4.61 cm (3.5-5.7) LVDs 2.93 cm (3.5-5.7) IVSd 1.54 cm (0.6-1.1) PWd 1.14 cm (0.6-1.1) EF (Teich) 66.30% FS 36.40% EDV (Teich) 97.80 mL TAPSE 3.15 (<1.7) ESV (Teich) 33.00 mL LV Diastology E Decel Time 267 (160-240 msec) E/A Ratio 0.61 MED A' 13.70 cm/s LAT A' 8.90 cm/s Aortic Valve AI PHT 501.00 ms AO Peak GR. 5.30 mmHg Mitral Valve MV E Max Thaddeus. 49.0 (40-130 cm/s) MV A Velocity 80.0 (40-130 cm/s) E/A Ratio 0.61 MV PHT 78.0 ms Pulmonary Valve PV Peak Velocity 86.0 (50-150 cm/s) Tricuspid Valve TR P. Velocity 207.00 cm/s RAP Estimate 10.00 mmHg RVSP 27.10 mmHg Left Ventricle The left ventricle is normal size. The left ventricular systolic function is normal. The left ventricular ejection fraction is within the normal range. There is normal left ventricular wall thickness. There is normal LV segmental wall motion. The left ventricular diastolic function is normal. LVEF is 60%. Right Ventricle The right ventricle is normal size. The right ventricular systolic function is normal. Atria The left atrium size is normal. The right atrium size is normal. There is no Doppler evidence of interatrial shunt. Aortic Valve The aortic valve is mildly thickened. There is no aortic valvular stenosis. Mild aortic regurgitation. Mitral Valve The mitral valve is normal in structure. No evidence of mitral valve stenosis. Trace mitral regurgitation. Tricuspid Valve The tricuspid valve leaflets are thin and pliable. Trace tricuspid regurgitation. There is insufficient TR jet to estimate RVSP. Pulmonic Valve The pulmonary valve is normal in structure. Trace pulmonic regurgitation. Great Vessels The aortic root is normal in size. The ascending aorta is normal in size. IVC is normal in size and collapses >50% with inspiration. Pericardium There is no pericardial effusion. Other Information Study Quality: Fair Conclusion Normal biventricular systolic function. Mild AI. Electronically signed by : Melissa Santa MD 06/27/2023 22:29:09
--- NOTE | 2023-06-27 13:21 | CARE MANAGER ---
Contacted patient and related to hospital discharge. Patient states that he is doing well. They don't have the new medications yet, but are getting them today from [facility]. They are aware of follow up appointments and deny any questions or concerns. DAISHA Rueda
== END 2023-06-26 13:03 | disposition home or self-care (01) ==
LOC: ER 15:45 → 2ND 16:03
PROVIDERS: Admitting Provider Internal Medicine Adolescent Medicine; Emergency Provider Emergency Medicine; PCP Internal Medicine; Visit Provider Internal Medicine Adolescent Medicine
DX: I25.110 Atherosclerotic heart disease of native coronary artery with unstable angina pectoris; F43.25 Adjustment disorder with mixed disturbance of emotions and conduct; G47.52 REM sleep behavior disorder; R41.3 Other amnesia; E78.5 Hyperlipidemia, unspecified; Z87.891 Personal history of nicotine dependence; I11.0 Hypertensive heart disease with heart failure; R07.9 Chest pain, unspecified; R00.1 Bradycardia, unspecified; Z79.899 Other long term (current) drug therapy; I50.32 Chronic diastolic (congestive) heart failure; I65.23 Occlusion and stenosis of bilateral carotid arteries; G20.C Parkinsonism, unspecified
CPT/HCPCS: 36415; 71045; 76705; 80053; 80061; 83735; 84484; 85025; 93005; 93306; 99285; G0378; J2405

== ENCOUNTER 2023-07-07 09:27 | Day surgery (SDC) | payer MEDICARE, OTHER, SELFPAY ==
[2023-07-05 12:02] VITALS: BMI 26.1
[2023-07-07] MEDS: LACTATED RINGERS 1000ML 1,000 ML 25 ML IV (09:44)
[2023-07-07 09:46] VITALS: BP 165/84; PULSE 58; RESP 18; TEMP 36.4; O2SAT 97
--- NOTE | 2023-07-07 11:12 | P.PNANES_ITS ---
[facility] Disclaimer: The information contained in this section may have been updated after the patient was seen, as this information can be updated by other users. Medical History Parkinson disease CAD (coronary artery disease) Carotid artery stenosis Bilateral carotid bruits Unstable angina Dyspnea HLD (hyperlipidemia) HTN (hypertension) Ex-smoker Sinus bradycardia Surgical History History of shoulder surgery History of colonoscopy History of carpal tunnel surgery of left wrist Family History Other Cancer Coronary artery disease Hypertension Stroke Social History Smoking Status: Former smoker second hand exposure: No alcohol intake: never substance use type: denies use current occupational status: retired Travel in the last 8 weeks: None household members: spouse housing: house caffeine: Yes [facility] Anesthesia Checklist Patient Identification Patient Identification: Arm Band and Verbal (Name & ) Structural Data Admitted From: Home Planned Operative Procedure/s: EGD Consent for Planned Operative Procedure(s) Verified: Yes NPO Status Verified Time NPO: 00:00 Additional verifications Anesthesia Reactions: No Hx Blood Transfusions: No Blood Transfusion Reaction: Yes Airway Assessment Mallampati Score:: Class II C-Spine Mobility Assessed: Yes TMJ Mobility Assessed: Yes Dentition: Partials Neurological Assessment Level of Consciousness: Awake Hx Seizures: No Numbness or tingling in extremities: No Anesthesia Plan Anesthesia Risk discussed: Yes Anesthesia Plan: Verified ASA Class: III Anesthesia Type: MAC
[2023-07-07 11:24] VITALS: O2SAT 97
--- NOTE | 2023-07-07 11:32 | P.PCN_ITS ---
Procedure: Date: 07/07/23 Patient Date of :: 1945 Procedure Performed:: Esophagogastroduodenoscopy with biopsies Indications:: Patient is a 78-year-old male referred after recent hospitalization for chest pain to perform EGD. Patient has a history of coronary artery disease, carotid artery stenosis, hypertension, hyperlipidemia, Parkinson's disease, apparent Lewy body dementia. Primary care provider is Poncho Lawrence MD. He was recently admitted from 06/25/2023 until 06/26/2023 with onset of epigastric pain and chest pain. He had eaten Cheerios with milk prior to onset of symptoms. He states that the pain began after that but then became more severe as time went on. After he went to the emergency department where he was seen and evaluated and admitted for inpatient management due to the potential for cardiac etiology. He had seen cardiology. There was concern for possible noncardiac etiologies such as esophagitis, hiatal hernia, GERD. He did undergo gallbladder ultrasound which was negative for gallstones. Hospitalist service felt that the patient needed outpatient referral for possible EGD to evaluate for esophageal gastric etiology. Performing Provider:: Chuy Quiroz MD Referring Provider:: Poncho Lawrence MD Sedation:: MAC sedation Procedure:: Patient history was obtained and appropriate physical examination was performed. Patient's medications and allergies were reviewed. Informed consent was obtained after explaining the benefits, alternatives, and risks of the procedure including, but not limited to, bleeding, perforation, missed lesions, and adverse reaction to anesthesia medications. Patient was transported to endoscopy procedure room. Patient was connected to monitoring devices. Throughout the procedure the patient's blood pressure, pulse, and oxygen saturations were monitored continuously. Patient identification and planned procedure were verified by the staff. Patient was positioned in lateral decubitus position. Olympus endoscope was inserted via the oropharynx. Esophagus was cannulated. There were findings suggestive of mild esophageal dysmotility. Gastroesophageal junction was encountered at approximately 42 cm. Stomach was cannulated. There was an appreciable amount of retained food matter within the gastric lumen which obscured visualization somewhat. Retroflexion was performed which revealed a small sliding hiatal hernia. There was some diffuse gastropathy/nonerosive gastritis. Biopsy was obtained of the gastric antrum. Pylorus was traversed. There was some food matter within the duodenum as well. Endoscope was withd rawn. . Findings:: Mild esophageal dysmotility Gastroesophageal junction at 42 cm Small hiatal hernia Diffuse nonerosive gastritis Retained food matter in the stomach and duodenum Recommendations:: Follow-up on biopsy results and treat H. pylori if positive. I will plan to obtain an upper GI with small bowel follow-through to check for proximal bowel mechanical etiology. Also plan for gastric emptying scan as this may be functional. Complications:: None immediately apparent Estimated blood obtained (mL): 1 Colonoscopy Component Colonoscopy Component Was a colonoscopy performed during today's procedure?: No
[2023-07-07 11:35] VITALS: BP 98/60; PULSE 43; RESP 16; TEMP 36.4; O2SAT 99
[2023-07-07 11:45] VITALS: BP 118/67; PULSE 51; RESP 16; O2SAT 97
[2023-07-07 11:55] VITALS: BP 115/65; PULSE 45; RESP 16; O2SAT 96
[2023-07-07 12:05] VITALS: BP 120/67; PULSE 44; RESP 16; O2SAT 99
== END 2023-07-07 12:06 | disposition home or self-care (01) ==
PROVIDERS: PCP Internal Medicine; Visit Provider Surgery
PROC: 0DJ08ZZ Inspection of Upper Intestinal Tract, Via Natural or Artificial Opening Endoscopic (ICD-10-PCS; CPT 43235; principal; 2023-07-07 10:30)
DX: R07.89 Other chest pain (principal); R13.10 Dysphagia, unspecified; K21.9 Gastro-esophageal reflux disease without esophagitis; K44.9 Diaphragmatic hernia without obstruction or gangrene; B96.81 Helicobacter pylori [H. pylori] as the cause of diseases classified elsewhere; K22.4 Dyskinesia of esophagus
CPT/HCPCS: 43239; 88305; 88342

== ENCOUNTER 2023-07-17 09:12 | Outpatient (CLI) | payer MEDICARE, OTHER, SELFPAY ==
--- NOTE | 2023-07-17 09:12 | NM_ITS ---
FINAL REPORT TECHNIQUE: 0.55 millicuries of technetium 99m sulfur colloid was ingested with eggs, toast, and water. CLINICAL HISTORY: nausea 9:25AM 0.55 MCI TC SULFUR COLLOID INJ INTO 2 WHOLE EGGS, 2 PC OF TOAST AND WATER FINDINGS: GASTRIC EMPTYING SCAN Static images show normal emptying of the stomach into the small bowel. Based on the time activity curve, the estimated half-emptying time is 104 minutes. IMPRESSION: Emptying time is at the upper limits of normal. Reviewed, Interpreted and Dictated by Chuy Ruiz III, MD Transcribed by Ana Cristina Tovar Authenticated and [facility]
[2023-07-17] MEDS: TC99M SULF.COLLOID;1 DOSE (UP TO 20 MCI) IV (09:30)
== END 2023-07-17 23:59 ==
LOC: RAD 09:12
PROVIDERS: PCP Internal Medicine; Visit Provider Surgery
DX: R10.13 Epigastric pain (principal)
CPT/HCPCS: 78264; A9541

== ENCOUNTER 2023-07-21 08:38 | Outpatient (CLI) | payer MEDICARE, OTHER, SELFPAY ==
--- NOTE | 2023-07-21 08:39 | FL_ITS ---
FINAL REPORT CLINICAL HISTORY: ft 3:29 dap- 3178.25 FINDINGS: UPPER GI WITH SBFT HISTORY: Acute generalized abdominal pain. Abnormal endoscopy. PROCEDURE: The patient ingested barium. 32 Spot and overhead films were obtained. Additional barium was administered for a SBFT. Fluoro time: 3 minutes 29 seconds DAP: 3178.25 uGym2. FINDINGS: No esophageal stricture is identified. There is a small sliding-type hiatal hernia. No gastroesophageal reflux was demonstrated during the exam. There was esophageal dysmotility. The stomach empties appropriately. The duodenum is poorly distended but otherwise unremarkable. SBFT: The pst supervisor film is normal. There is no evidence of obstruction. The mucosal fold pattern is normal. The terminal ilium is normal. IMPRESSION: Small sliding-type hiatal hernia and esophageal dysmotility. Unremarkable small bowel follow-through. Films reviewed , interpreted and dictated by Dr. Ruiz. Transcribed by Gopal Hunter PA-C. Reviewed, Interpreted and Dictated by Chuy Ruiz III, MD Transcribed by CECY Perry Authenticated and [facility]
[2023-07-21] MEDS: BARIUM SULFATE (E-Z-HD 340GM);135ML BOTTLE 135 ML PO (09:26)
[2023-07-21] MEDS: BARIUM SULFATE(LIQUID E-Z-PAQUE);355ML BOTTLE 355 ML PO (09:26)
== END 2023-07-21 23:59 ==
PROVIDERS: PCP Internal Medicine; Visit Provider Surgery
DX: R10.13 Epigastric pain (principal)
CPT/HCPCS: 74246; 74248

== ENCOUNTER 2023-07-26 13:40 | Outpatient (CLI) | payer MEDICARE, OTHER, SELFPAY ==
--- NOTE | 2023-07-26 13:48 | CT_ITS ---
FINAL REPORT TECHNIQUE: multiple axial CT images were performed from the foramen magnum to the vertex without enhancement. CLINICAL HISTORY: MEMORY LOSS,FREQUENT FALLS COMPARISON: Prior MRI dated 04/08/2021 FINDINGS: The ventricles are enlarged. There is diffuse moderate atrophy. There is periventricular white matter change likely related to small vessel disease. The ventriculomegaly is slightly out of proportion to the atrophic changes, and normal pressure hydrocephalus cannot be excluded. There is no evidence of hemorrhage. No masses are identified. No extra-axial fluid is seen. The sinuses are normal. IMPRESSION: Atrophy and chronic changes without acute process. Reviewed, Interpreted and Dictated by Stevan Gallo MD Transcribed by Padmini Sumner Authenticated and [facility]
[2023-07-26 15:05] LABS: Chloride 105 mmol/L (98-107)
[2023-07-26 15:06] LABS: Potassium 4.6 mmoL/L (3.5-5.1); Sodium 138 mmol/L (136-145)
[2023-07-26 15:08] LABS: Alanine Aminotransferase 26 U/L (12-78); Alkaline Phosphatase 75 U/L (38-126); Aspartate Amino Transferase 34 U/L (17-59); Bilirubin,Total 0.5 mg/dl (0.2-1.3); Blood Urea Nitrogen 18 mg/dl (9-20); Estimated Glomerular Filt Rate 42 ml/min (>60); GFR (African American) 51 ML/MIN (>60)
[2023-07-26 15:09] LABS: Albumin Level 4.2 g/dl (3.5-5.0); Albumin/Globulin Ratio 1.7 (1.1-1.8); Anion Gap 11.6 mEq/L (5-15); Carbon Dioxide 26 mmol/L (22.0-30.0); Globulin 2.5 g/dL (1.3-3.2); Glucose 94 mg/dl (74-100); Total Protein,Serum 6.7 g/dl (6.3-8.2)
== END 2023-07-26 23:59 ==
PROVIDERS: PCP Internal Medicine; Visit Provider Internal Medicine
DX: F05 Delirium due to known physiological condition (principal); I10 Essential (primary) hypertension; E78.5 Hyperlipidemia, unspecified; G60.9 Hereditary and idiopathic neuropathy, unspecified; G20.A1 Parkinson's disease without dyskinesia, without mention of fluctuations; R27.0 Ataxia, unspecified; R29.6 Repeated falls; G31.83 Neurocognitive disorder with Lewy bodies; Z87.891 Personal history of nicotine dependence
CPT/HCPCS: 36415; 70450; 80053

== ENCOUNTER 2023-09-07 13:41 | Outpatient (CLI) | payer MEDICARE, OTHER, SELFPAY ==
[2023-09-07 13:49] LABS: Microscopic, Urine URINE MICROSCOPIC (MICROSCOPIC)
[2023-09-07 14:19] LABS: Appearance,Urine CLEAR (Clear); Bilirubin,Urine Negative (Negative); Blood, Urine Negative (Negative); Color,Urine YELLOW (Yellow); Glucose,Urine (UA) Negative (Negative); Ketones,Urine Negative (Negative); Leukocyte Esterase,Urine Negative (Negative); Nitrate,Urine Negative (Negative); Protein,Urine Negative (Negative); Specific Gravity, Urine 1.025 (1.005-1.030); Urobilinogen,Urine 0.2 EU/dl (0.2)
[2023-09-07 15:13] LABS: Bacteria,Urine Trace /lpf; Squamous Epithelial Cell,Urine Occasional #/hpf (0-5); WBC,Urine Occasional #/hpf (0-3)
== END 2023-09-07 23:59 | disposition home or self-care (01) ==
LOC: LAB.DROPOF 13:42
PROVIDERS: PCP Family Medicine; Visit Provider Family Medicine
DX: N39.0 Urinary tract infection, site not specified (principal); B96.5 Pseudomonas (aeruginosa) (mallei) (pseudomallei) as the cause of diseases classified elsewhere
CPT/HCPCS: 81001; 87086; 87088; 87186

== ENCOUNTER 2023-09-12 08:36 | Emergency (ER) | payer MEDICARE, OTHER, SELFPAY ==
[2023-09-12] VITALS (12 sets, daily range): BP systolic 107–146; BP diastolic 62–75; PULSE 44–69; RESP 12–18; TEMP 36.5–37; O2SAT 94–98; BMI 22.9
--- NOTE | 2023-09-12 08:38 | XR_ITS ---
FINAL REPORT CLINICAL HISTORY: syncope COMPARISON: 06/25/2023 FINDINGS: SINGLE-VIEW CHEST The heart size is normal. The mediastinum is normal. The lungs are clear. There is no pneumothorax. IMPRESSION: No acute cardiopulmonary process. Reviewed, Interpreted and Dictated by Chuy Ruiz III, MD Transcribed by Myesha Horotn Authenticated and [facility]
--- NOTE | 2023-09-12 08:38 | CT_ITS ---
FINAL REPORT CLINICAL HISTORY: syncope COMPARISON: 07/26/2023 FINDINGS: Axial images of the head were obtained without contrast. Coronal reformatted images were also obtained. This study was performed with techniques to keep radiation doses as low as reasonably achievable (ALARA). Individualized dose reduction techniques using automated exposure control or adjustment of mA and/or kV according to the patient's size were employed. There is generalized age-appropriate atrophy. Periventricular low-attenuation areas are seen consistent with mild chronic ischemic changes. There is moderate ventriculomegaly, stable. There is no evidence of intracranial hemorrhage or mass. There is no evidence of acute infarct. There is no evidence of shift of the midline structures. No skull abnormality is seen on the bone window images. IMPRESSION: Atrophy and mild periventricular chronic ischemic changes. No acute intracranial abnormality identified. Reviewed, Interpreted and Dictated by Chuy Ruiz III, MD Transcribed by Myesha Horton Authenticated and [facility]
--- NOTE | 2023-09-12 08:41 | CT_ITS ---
FINAL REPORT TECHNIQUE: Thin section axial CT with IV contrast supplemented with multiplanar reconstruction under CT angiogram protocol. This study was performed with techniques to keep radiation doses as low as reasonably achievable (ALARA). Individualized dose reduction techniques using automated exposure control or adjustment of mA and/or kV according to the patient''s size were employed. NASCET criteria was utilized during interpretation. CLINICAL HISTORY: syncope FINDINGS: Aortic arch: Arch shows no significant narrowing. Great vessel origins are widely patent. Right carotid: No significant stenosis is seen of the cervical common or internal carotid artery. Left carotid: No significant stenosis is seen of the cervical common or internal carotid artery. Vertebral: Right vertebral artery is dominant. No significant stenosis is present. IMPRESSION: No evidence of stenosis. Reviewed, Interpreted and Dictated by Chuy Ruiz III, MD Transcribed by Myesha Horton Authenticated and [facility]
--- NOTE | 2023-09-12 08:41 | CT_ITS ---
FINAL REPORT CLINICAL HISTORY: syncope FINDINGS: Thin section axial CT images of the chest were obtained with contrast. 3D reformatted images were also obtained. This study was performed with techniques to keep radiation doses as low as reasonably achievable (ALARA). Individualized dose reduction techniques using automated exposure control or adjustment of mA and/or kV according to the patient''s size were employed. Motion artifact is identified on many of the images. There is no evidence of pulmonary embolism. There is no evidence of thoracic aortic aneurysm or dissection. There is no evidence of mediastinal or hilar mass or adenopathy. There is cardiomegaly. Mild atelectasis is identified. There is no evidence of pulmonary mass or nodule. IMPRESSION: No evidence of pulmonary embolism. Reviewed, Interpreted and Dictated by Chuy Ruiz III, MD Transcribed by Myesha Horton Authenticated and [facility]
--- NOTE | 2023-09-12 08:41 | CT_ITS ---
FINAL REPORT TECHNIQUE: Multiple axial CT angiography images were performed from the foramen magnum to the vertex before and during IV contrast administration. This study was performed with techniques to keep radiation doses as low as reasonably achievable (ALARA). Individualized dose reduction techniques using automated exposure control or adjustment of mA and/or kV according to the patient's size were employed. CLINICAL HISTORY: syncope FINDINGS: CTA HEAD: The major intracranial arterial system is patent without hemodynamically significant stenosis or major vessel occlusion.No aneurysm is identified. IMPRESSION: No acute intracranial hemorrhage or large acute cortical infarct. No evidence of vascular injury, aneurysm, hemodynamically significant stenosis or major vessel occlusion of the intracranial arterial system. Reviewed, Interpreted and Dictated by Chuy Ruiz III, MD Transcribed by Myesha Horton Authenticated and [facility]
--- NOTE | 2023-09-12 08:42 | HMH.EDGENADL ---
Discharge Plan Disposition Patient Disposition: Xfer [facility] Condition: Good Prescriptions Prescriptions: New ciprofloxacin HCl 500 mg tablet 500 mg PO BID Qty: 20 0RF No Action benazepril 40 mg tablet 40 mg PO DAILY Patient Comments: TAKE 1 TABLET BY MOUTH EVERY MORNING FOR BLOOD PRESSURE aspirin 81 mg tablet,chewable 81 mg PO DAILY isosorbide mononitrate 60 mg tablet extended release 24 hr 60 mg PO DAILY Qty: 30 5RF tamsulosin 0.4 mg capsule 0.4 mg PO HS melatonin 5 mg capsule See Rx Instructions PO QHS Rx Instructions: 5 mg orally every day at bedtime; pantoprazole [Protonix] 40 mg tablet,delayed release (DR/EC) 40 mg PO BID Nuplazid 34 mg capsule 34 mg PO DAILY Qty: 30 5RF bismuth subsalicylate 525 mg tablet 525 mg PO QID PRN (Reason: h pylori) 14 Days Qty: 56 0RF Rx Instructions: do not exceed 8 doses in a 24 hour period multivitamin 1 EACH tablet 1 each PO DAILY cyanocobalamin (vitamin B-12) 5,000 MCG tablet,disintegrating 5,000 mcg PO DAILY ranolazine 500 mg tablet extended release 12 hr 500 mg PO DAILY Patient Comments: TAKE 1 TABLET BY MOUTH ONCE DAILY FOR CHEST PAIN polyethylene glycol 3350 [Miralax] 17 gram Powder In Packet 17 g PO DAILY 30 Days Qty: 238 0RF sennosides-docusate sodium [Stimulant Laxative Plus] 8.6-50 mg Tablet 1 tab PO BID PRN (Reason: constipation) 30 Days Qty: 30 0RF ascorbate calcium (vitamin C) 500 MG tablet 500 mg PO DAILY Activity Restrictions/Add. Instructions Additional Instructions/Restrictions: You were evaluated in the emergency department today and diagnosed with a urinary tract infection. Given your history of recurrent urinary tract infections, I recommend urologic evaluation as an outpatient. Previous urine culture grew Pseudomonas aeruginosa, so I am prescribing you ciprofloxacin. Return to the emergency department for new or worsening symptoms. Clinical Impressions Clinical Impression: Recurrent UTI, Syncope Instructions Patient Instructions: DI for Syncope in Adults (Fainting), DI for Urinary Tract Infection (UTI) Discharge ED Provider: Meg Espinosa General Adult HPI General Chief complaint: Syncope Stated complaint: syncope Time Seen by Provider: 09/12/23 08:37 History of Present Illness HPI narrative: This patient is a 78-year-old male with a history of heart failure with preserved ejection fraction, dementia, Parkinson's disease, hypertension, hyperlipidemia, CAD, carotid stenosis, and prior smoking history presenting to the emergency department for evaluation with concern for syncope. According to nursing facility report, the patient had a syncopal episode this morning and continued to have altered mental status and decreased GCS for 1-2 minutes afterwards. They noted his vitals were stable during this time. They called EMS, who noted that the patient was hemodynamically stable en route and has had progressively improving mental status since they got to him. They state he is now more alert and talkative than he was previously. History is limited from patient given baseline history of dementia, as he does not remember much about what happened this morning. He is very pleasant and states that he is feeling fine with no concerns or complaints at this time. He notes that he thought he was having a good morning this morning and did not feel off as far as he can remember. He believes he remembers eating breakfast this morning. I independently reviewed patient's medical records from outside hospital and noted the patient was evaluated at [facility] on 08/12/2023 for similar issue. He had workup including EKG, CT head, and CT angiograms of the head and neck. He also had urinalysis. Workup was only concerning for urinary tract infection, for which she was treated with Duricef as an outpatient. Otherwise, his workup was unremarkable and he was deemed to be appropriate for discharge home. Family arrives with further history and stated that the patient was eating breakfast this morning when he started complaining that he was so tired he felt like he could not hold his head up. That was when he seemed to pass out. This was while he was trying to eat breakfast. He states that now he seems to be back to his baseline. They do note that he has had some issues with urinary tract infections as of late. They also note he has not been drinking quite as much lately. They stated yesterday he had a really good day and after seem to be doing better. They noted that he had follow-up with his neurologist recently and they had mentioned adding Klonopin for some agitation that the patient had intermittently however they are not sure that this was added. On review of medication list from nursing facility, I do not see this listed. Related Data Home Medications Medication Instructions Recorded Confirmed aspirin 81 mg chewable tablet 81 mg PO DAILY Heart disease 08/09/19 09/06/23 benazepril 40 mg tablet 40 mg PO DAILY High blood pressure 08/09/19 09/06/23 cyanocobalamin (vitamin B-12) 5,000 mcg PO DAILY Supplement 09/23/20 09/06/23 5,000 mcg disintegrating tablet multivitamin 1 each PO DAILY Supplement 09/23/20 09/06/23 ascorbate calcium (vitamin C) 500 500 mg PO DAILY Supplement 11/17/20 09/06/23 mg tablet tamsulosin 0.4 mg capsule 0.4 mg PO HS 05/10/22 09/06/23 ranolazine 500 mg tablet,extended 500 mg PO DAILY 06/26/23 09/06/23 release,12 hr melatonin 5 mg capsule See Rx Instructions PO QHS 09/06/23 09/06/23 pantoprazole 40 mg tablet,delayed 40 mg PO BID 09/06/23 release (Protonix) Previous Rx's Medication Instructions Recorded polyethylene glycol 3350 17 gram 17 g PO DAILY 30 days #238 grams 06/26/23 oral powder packet (Miralax) sennosides 8.6 mg-docusate sodium 1 tab PO BID PRN constipation 30 06/26/23 50 mg tablet (Stimulant Laxative days #30 tabs Plus) isosorbide mononitrate 60 mg 60 mg PO DAILY #30 tabs 07/11/23 tablet,extended release 24 hr bismuth subsalicylate 525 mg tablet 525 mg PO QID PRN h pylori 14 days 07/17/23 #56 tabs pimavanserin 34 mg capsule 34 mg PO DAILY parkinson's related 07/17/23 (Nuplazid) hallucinations #30 caps ciprofloxacin HCl 500 mg tablet 500 mg PO BID #20 tabs 09/12/23 Allergies Allergy/AdvReac Type Severity Reaction Status Date / Time No Known Allergies Allergy Verified 09/06/23 12:00 [facility] Disclaimer: The information contained in this section may have been updated after the patient was seen, as this information can be updated by other users. Medical History Dysphagia Parkinson disease CAD (coronary artery disease) Carotid artery stenosis Bilateral carotid bruits Unstable angina Dyspnea HLD (hyperlipidemia) HTN (hypertension) Ex-smoker Sinus bradycardia Surgical History History of esophagogastroduodenoscopy (EGD) History of shoulder surgery History of colonoscopy History of carpal tunnel surgery of left wrist Family History Other Cancer Coronary artery disease Hypertension Stroke Social History Smoking Status: Never smoker second hand exposure: No alcohol intake: never substance use type: denies use current occupational status: retired Travel in the last 8 weeks: None household members: spouse housing: house caffeine: Yes ROS Obtained: Yes All systems reviewed & no additional complaints except as documented Physical Exam General General appearance: alert and in no apparent distress Head Head exam: atraumatic and normocephalic Eye Eye exam: Present normal appearance, PERRL and EOMI ENT ENT exam: Present normal exam, normal oropharynx, mucous membranes moist and normal external ear exam Neck Neck exam: Present normal inspection, full ROM and trachea midline; Absent tenderness Chest Chest inspection: Present normal inspection and symmetric chest wall rise; Absent tenderness Respiratory Respiratory exam: Present normal lung sounds bilaterally; Absent respiratory distress, wheezes, stridor or accessory muscle use Cardiovascular Cardiovascular exam: Present regular rate and normal rhythm Abdominal Exam Abdominal exam: Present soft; Absent distention, tenderness or guarding Extremities Exam Extremities exam: Present normal inspection, full ROM and normal capillary refill; Absent tenderness or edema Back Exam Back exam: Present normal inspection and full ROM; Absent tenderness Neurological Exam Neurological exam: Present alert, CN II-XII intact and other (baseline tremor with no focal deficits); Absent oriented X3 (oriented to person and place) or motor sensory deficit Psychiatric Psychiatric exam: Present normal affect and normal mood Skin Skin exam: Present warm and dry Medical Decision Making Medical Records Medical records reviewed: Yes I reviewed the patient's medical records. Tc Inquiry Pt receiving controlled substance: No Vital Signs: 09/12/23 08:36 09/12/23 09:32 09/12/23 10:00 Temperature 97.7 F Temperature Source Oral Pulse Rate 51 L 47 L Pulse Rate [Right Radial] 60 Respiratory Rate 18 12 15 Blood Pressure 130/66 118/68 Blood Pressure [Right Arm] 124/68 Blood Pressure Mean [Right Arm] 86 Blood Pressure Source Blood Pressure Source [Right Arm] Automatic Cuff Blood Pressure Position Blood Pressure Position [Right Arm] Sitting 02 Sat by Pulse Oximetry 96 96 97 Oxygen Delivery Method Room Air 09/12/23 10:30 09/12/23 11:01 09/12/23 11:17 Temperature Temperature Source Pulse Rate 61 52 L Pulse Rate [Right Radial] Respiratory Rate 14 14 18 Blood Pressure 107/62 L 118/62 118/62 Blood Pressure [Right Arm] Blood Pressure Mean [Right Arm] Blood Pressure Source Automatic Cuff Blood Pressure Source [Right Arm] Blood Pressure Position Sitting Blood Pressure Position [Right Arm] 02 Sat by Pulse Oximetry 97 95 Oxygen Delivery Method Room Air 09/12/23 11:31 09/12/23 12:00 09/12/23 12:31 Temperature Temperature Source Pulse Rate 49 L 48 L 44 L Pulse Rate [Right Radial] Respiratory Rate 12 14 15 Blood Pressure 131/70 118/64 146/72 H Blood Pressure [Right Arm] Blood Pressure Mean [Right Arm] Blood Pressure Source Blood Pressure Source [Right Arm] Blood Pressure Position Blood Pressure Position [Right Arm] 02 Sat by Pulse Oximetry 95 95 98 Oxygen Delivery Method Room Air 09/12/23 12:46 09/12/23 14:01 09/12/23 15:00 Temperature 98.6 F Temperature Source Pulse Rate 69 60 Pulse Rate [Right Radial] Respiratory Rate 18 15 18 Blood Pressure 146/72 H 134/71 110/75 Blood Pressure [Right Arm] Blood Pressure Mean [Right Arm] Blood Pressure Source Automatic Cuff Blood Pressure Source [Right Arm] Blood Pressure Position Sitting Blood Pressure Position [Right Arm] 02 Sat by Pulse Oximetry 97 94 L Oxygen Delivery Method Room Air Room Air Room Air Lab Data Lab results reviewed: Yes I reviewed the patient's lab results. Lab Results 09/12/23 08:35: WBC 9.2, RBC 3.98 L, Hgb 13.1 L, Hct 41.3 L, MCV 103.6 H, MCH 32.8 H, MCHC 31.6 L, RDW 13.4, Plt Count 403, MPV 7.4, Neut % (Auto) 74.3, Lymph % (Auto) 20.6, [place] % (Auto) 4.0, Eos % (Auto) 0.7, Baso % (Auto) 0.5, Neut # (Auto) 6.8, Lymph # (Auto) 1.9, [place] # (Auto) 0.4, Eos # (Auto) 0.1, Baso # (Auto) 0.0, Sodium 141, Potassium 4.4, Chloride 104, Carbon Dioxide 29, Anion Gap 12.4, BUN 25 H, Creatinine 1.30 H, Estimated Creat Clear 49, Estimated GFR 54 L, Est GFR ( Amer) 65, Glucose 127 H, Calcium 9.2, Total Bilirubin 0.5, AST 24, ALT 19, Alkaline Phosphatase 71, Troponin I < 0.01, Total Protein 6.3, Albumin 3.5, Globulin 2.8, Albumin/Globulin Ratio 1.3, TSH 0.88, Thyroxine (T4) 8.5 09/12/23 09:00: Urine Color Yellow, Urine Appearance Clear, Urine pH 7.0, Ur Specific [place] 1.015, Urine Protein Negative, Urine Glucose (UA) Negative, Urine Ketones Negative, Urine Blood Trace-i, Urine Nitrate Negative, Urine Bilirubin Negative, Urine Urobilinogen 0.2, Ur Leukocyte Esterase 2+ A, Urine RBC None, Urine WBC 5-10, Ur Squamous Epith Cells Occasional, Urine Bacteria 4+ 09/12/23 11:15: Troponin I < 0.01 09/12/23 08:35 09/12/23 08:35 Orders (Tests/Meds): ED MEDICATIONS Discontinued Medications Generic Name Dose Route Start Last Admin Trade Name Freq PRN Reason Stop Dose Admin Ceftriaxone Sodium 2 gm/ 100 mls @ 200 mls/hr 09/12/23 11:04 09/12/23 11:13 Sodium Chloride IV 09/12/23 11:33 200 mls/hr ONCE ONE Administration Sodium Chloride 1,000 mls @ 999 mls/hr 09/12/23 11:04 09/12/23 11:12 Sod Chlor 0.9% 1000ml Bag IV 09/12/23 12:04 999 mls/hr .Q1H1M ONE Administration Iopamidol 75 ml 09/12/23 09:18 09/12/23 09:19 Iopamidol-370 (76%);100ml Bottle IV 09/12/23 09:19 75 ml ONCE ONE Administration Iopamidol 100 ml 09/12/23 09:18 09/12/23 09:19 Iopamidol-370 (76%);100ml Bottle IV 09/12/23 09:19 100 ml ONCE ONE Administration Sodium Chloride 50 ml 09/12/23 09:18 09/12/23 09:19 0.9 % Sodium Chloride 50 Ml Vial IV 09/12/23 09:19 50 ml ONCE ONE Administration Sodium Chloride 10 ml 09/12/23 09:18 09/12/23 09:19 Sodium Chloride 0.9% 10ml Syr (Rad Only) IV 09/12/23 09:19 10 ml ONCE ONE Administration Sodium Chloride 50 ml 09/12/23 09:18 09/12/23 09:19 0.9 % Sodium Chloride 50 Ml Vial IV 09/12/23 09:19 50 ml ONCE ONE Administration ORDERS Category Date Time Status CT abdomen pelvis w con Stat Cat Scan 09/12/23 08:[address] angio chest PE protocol Stat Cat Scan 09/12/23 08:[address] angio head Stat Cat Scan 09/12/23 08:[address] angio neck Stat Cat Scan 09/12/23 08:[address] head/brain wo con Stat Cat Scan 09/12/23 08:38 Completed XR chest portable Stat Exams 09/12/23 08:38 Completed Complete Blood Count Auto Diff Stat Lab 09/12/23 08:35 Completed Comprehensive Metabolic Panel Stat Lab 09/12/23 08:35 Completed T4 (Thyroxine) Stat Lab 09/12/23 08:35 Completed Thyroid Stimulating Hormone Stat Lab 09/12/23 08:35 Completed Troponin I Q3H Lab 09/12/23 11:15 Completed Troponin I Stat Lab 09/12/23 08:35 Completed UA [Urinalysis and Microscopic] Stat Lab 09/12/23 09:00 Completed Urine Culture Stat Micro 09/12/23 09:00 Received ECG Data Tracing #1: I reviewed this ECG and interpreted as documented below: Sinus bradycardia with a ventricular rate of [address] changes concerning for ischemia. Some motion artifact noted from baseline tremor. ECG initial impression date: 09/12/23 ECG initial impression time: 08:46 Medical Decision Narrative: In summary, this patient is a 78-year-old male presenting to the Emergency Department for evaluation of syncope. He has a history of syncope in the past and also has history of urinary tract infections that have been recurrent as of late. Differential diagnoses considered include but are not limited to orthostatic hypotension, carotid stenosis, CVA, ACS, dysrhythmia, dehydration, urinary tract infection, electrolyte derangements, PE. Ruling out the most morbid conditions drove assessment. It should be noted patient's history includes carotid stenosis as well as CAD which may or may not be at goal therapy. This complicates all aspects of care by increasing patient's risk for morbidity. I reviewed patient's past medical records and noted previous evaluation for syncope at [facility] as per HPI. On exam, the patient is well-appearing and is at his baseline. He has no focal neurologic deficits. Cardiopulmonary exam and vitals are reassuring. Workup included CBC, CMP, troponin, TSH, T4, urinalysis, chest x-ray, EKG, CT head without contrast, CT angiogram of the head and neck, and CT chest, abdomen, and pelvis given the patient's recurrent syncope as well as recurrent urinary tract infections. I independently interpreted CT scans prior to the radiologist read and noted no obvious acute intracranial hemorrhage, area concerning for stroke, PE, or aortic pathology. Please see their read for final interpretation. Radiology does note bladder thickening concerning for cystitis. Labs were obtained that demonstrated concerns for urinary tract infection without other acutely concerning abnormalities. Troponins negative x 2.. I reviewed prior urine cultures which grew Pseudomonas aeruginosa, which was susceptible to ciprofloxacin. Patient was given a dose of Rocephin here for complicated UTI as well as a bolus of IV fluids given that he has had poor oral intake. On multiple subsequent reassessments, he has been resting comfortably with no concerns or complaints and is feeling fine. No recurrence of syncopal episodes. Given this, feel that he is appropriate for discharge back to the nursing facility with diagnosis of recurrent urinary tract infection as well as syncope. Strict return precautions were given and the patient was discharged with prescription for ciprofloxacin after all questions were answered. Family transported the patient back. Critical Care Critical Care Time Critical Care Time: No
--- NOTE | 2023-09-12 08:45 | ECG_ITS ---
APPROVED REPORT Exam: Resting ECG HR:56 bpm ECG Measurements Heart Rate 56 AXES MI 174 P 71 QRSd 94 QRS -42 QT 433 T 38 QTc 425 Conclusion SINUS BRADYCARDIA LEFT AXIS DEVIATION [QRS AXIS < -30] LOW QRS VOLTAGE IN PRECORDIAL LEADS [QRS DEFLECTION < 1.0 mV IN CHEST LEADS] ABNORMAL ECG Motion artifact noted. Electronically signed by : SMITAH ADAMS, 09/12/2023 16:26:13
[2023-09-12 08:47] LABS: Basophils % 0.5 % (0.1-2.0); Eosinophils # 0.1 K/mm3 (0.0-0.4); Eosinophils % 0.7 % (0.1-12.0); Hematocrit 41.3 % (42.0-52.0); Hemoglobin 13.1 g/dL (14.1-18.0); Lymphocytes # 1.9 K/mm3 (0.7-4.5); Lymphocytes % 20.6 % (10-50); Mean Corpuscular HGB Conc 31.6 g/dL (31.8-35.4); Mean Corpuscular Hemoglobin 32.8 pg (27.0-31.2); Mean Corpuscular Volume 103.6 fl (80-94); Mean Platelet Volume 7.4 fl (7.4-10.4); Monocytes # 0.4 K/mm3 (0.1-1.0); Neutrophils # 6.8 K/mm3 (1.8-7.8); Neutrophils % 74.3 % (37.0-80.0); Platelet Count 403 K/mm3 (142-424); Red Blood Count 3.98 M/mm3 (4.60-6.20); Red Cell Distribution Width 13.4 % (11.5-17.5); White Blood Count 9.2 K/mm3 (4.8-10.8)
--- NOTE | 2023-09-12 08:50 | PC.NURSE ---
radiology at bedside.
--- NOTE | 2023-09-12 08:52 | CT_ITS ---
FINAL REPORT TECHNIQUE: Postcontrast axial images through the abdomen and pelvis were performed. This study was performed with techniques to keep radiation doses as low as reasonably achievable, (ALARA). Individualized dose reduction techniques using automated exposure control or adjustment of mA and/or kV according to the patient's size were employed. CLINICAL HISTORY: recurrent UTI, syncope, poor PO FINDINGS: Abdomen: The lung bases are clear. The liver is normal in size and attenuation. The spleen is unremarkable. There is mild adrenal gland enlargement, likely hyperplasia or adenomas. The pancreas is unremarkable. There are small renal cysts. The aorta is normal in caliber. No free fluid or adenopathy is identified. No findings for mechanical bowel obstruction are identified. Pelvis: The appendix is normal. There is mild bladder wall thickening, likely inflammatory. The prostate is enlarged with multiple prostate seed implants. No free fluid, free air, abscess or adenopathy is identified. IMPRESSION: Mild bladder wall thickening, likely inflammatory. Reviewed, Interpreted and Dictated by Chuy Ruiz III, MD Transcribed by Myesha Horton Authenticated and [facility]
[2023-09-12 08:53] LABS: Alanine Aminotransferase 19 U/L (12-78); Albumin Level 3.5 g/dl (3.5-5.0); Albumin/Globulin Ratio 1.3 (1.1-1.8); Alkaline Phosphatase 71 U/L (38-126); Anion Gap 12.4 mEq/L (5-15); Aspartate Amino Transferase 24 U/L (17-59); Bilirubin,Total 0.5 mg/dl (0.2-1.3); Blood Urea Nitrogen 25 mg/dl (9-20); Calcium 9.2 mg/dl (8.4-10.2); Carbon Dioxide 29 mmol/L (22.0-30.0); Chloride 104 mmol/L (98-107); Creatinine Clearance Estimated 49 mL/min (50-200); Estimated Glomerular Filt Rate 54 ml/min (>60); GFR (African American) 65 ML/MIN (>60); Globulin 2.8 g/dL (1.3-3.2); Glucose 127 mg/dl (74-100); Potassium 4.4 mmoL/L (3.5-5.1); Sodium 141 mmol/L (136-145); Total Protein,Serum 6.3 g/dl (6.3-8.2)
[2023-09-12 09:06] LABS: Microscopic, Urine URINE MICROSCOPIC (MICROSCOPIC)
--- NOTE | 2023-09-12 09:07 | PC.NURSE ---
pt going to ct scan.
--- NOTE | 2023-09-12 09:09 | PC.NURSE ---
patient gone to CT at this time.
[2023-09-12 09:10] LABS: T4 (Thyroxine) 8.5 ug/dl (5.53-11.0)
[2023-09-12 09:11] LABS: Appearance,Urine CLEAR (Clear); Bilirubin,Urine Negative (Negative); Blood, Urine TRACE-I (Negative); Color,Urine YELLOW (Yellow); Glucose,Urine (UA) Negative (Negative); Ketones,Urine Negative (Negative); Leukocyte Esterase,Urine 2+ (Negative); Nitrate,Urine Negative (Negative); Protein,Urine Negative (Negative); Specific Gravity, Urine 1.015 (1.005-1.030); Urobilinogen,Urine 0.2 EU/dl (0.2)
[2023-09-12] MEDS: IOPAMIDOL-370 (76%);100ML BOTTLE 100 ML IV (09:19)
[2023-09-12] MEDS: IOPAMIDOL-370 (76%);100ML BOTTLE 75 ML IV (09:19)
[2023-09-12] MEDS: SODIUM CHLORIDE 0.9% 10ML SYR (RAD ONLY) 10 ML IV (09:19)
[2023-09-12] MEDS: 0.9 % SODIUM CHLORIDE 50 ML VIAL IV ×2 (09:19)
[2023-09-12 09:22] LABS: Troponin I < 0.01 ng/ml (0.00-0.034)
[2023-09-12 09:23] LABS: Thyroid Stimulating Hormone 0.88 uIU/mL (0.465-4.68)
--- NOTE | 2023-09-12 09:25 | PC.NURSE ---
patient back in room at this time.
[2023-09-12 09:32] LABS: Bacteria,Urine 4+ /lpf; Squamous Epithelial Cell,Urine Occasional #/hpf (0-5)
--- NOTE | 2023-09-12 10:08 | PC.NURSE ---
in room talking with patient.
[2023-09-12] MEDS: 0.9 % SODIUM CHLORIDE 1000ML 1,000 ML 999 ML IV (11:12)
[2023-09-12] MEDS: CEFTRIAXONE SODIUM 2 GM in 0.9 % SODIUM CHLORIDE 100 ML IV (11:13)
[2023-09-12 11:42] LABS: Troponin I < 0.01 ng/ml (0.00-0.034)
--- NOTE | 2023-09-12 12:56 | PC.NURSE ---
report called to Taya at [facility].
--- NOTE | 2023-09-12 13:00 | PC.NURSE ---
ems called for transfer back to [facility] at this time.
--- NOTE | 2023-09-12 13:04 | PC.NURSE ---
Dietary called for lunch tray while pt waits for transport back to [facility]. IV removed. Pt and family updated on poc.
--- NOTE | 2023-09-12 15:02 | PC.NURSE ---
report called to Taya at [facility].
--- NOTE | 2023-09-15 08:41 | PC.NURSE ---
discussed urine culture with , pt dc with cipro, ntd
== END 2023-09-12 15:02 ==
PROVIDERS: Emergency Provider Emergency Medicine; PCP Internal Medicine
DX: N39.0 Urinary tract infection, site not specified (principal); B96.29 Other Escherichia coli [E. coli] as the cause of diseases classified elsewhere; R00.1 Bradycardia, unspecified; R55 Syncope and collapse; G20.C Parkinsonism, unspecified; I65.29 Occlusion and stenosis of unspecified carotid artery; I11.9 Hypertensive heart disease without heart failure; I25.119 Atherosclerotic heart disease of native coronary artery with unspecified angina pectoris; E78.5 Hyperlipidemia, unspecified; F03.90 Unspecified dementia, unspecified severity, without behavioral disturbance, psychotic disturbance, mood disturbance, and anxiety
CPT/HCPCS: 70450; 70496; 70498; 71045; 71275; 74177; 80053; 81001; 84436; 84443; 84484; 85025; 87086; 87088; 87186; 93005; 96365; 99285; J0696; Q9967

== ENCOUNTER 2023-10-17 15:49 | Outpatient (CLI) | payer MEDICARE, OTHER, SELFPAY ==
[2023-10-17 17:22] LABS: Microscopic, Urine URINE MICROSCOPIC (MICROSCOPIC)
[2023-10-17 17:33] LABS: Basophils % 0.4 % (0.1-2.0); Eosinophils % 0.1 % (0.1-12.0); Hematocrit 43.3 % (42.0-52.0); Hemoglobin 14.5 g/dL (14.1-18.0); Lymphocytes # 1.8 K/mm3 (0.7-4.5); Lymphocytes % 14.3 % (10-50); Mean Corpuscular HGB Conc 33.4 g/dL (31.8-35.4); Mean Corpuscular Hemoglobin 32.8 pg (27.0-31.2); Mean Corpuscular Volume 98.3 fl (80-94); Mean Platelet Volume 7.6 fl (7.4-10.4); Monocytes # 0.8 K/mm3 (0.1-1.0); Monocytes % 6.4 % (1.7-9.3); Neutrophils # 9.7 K/mm3 (1.8-7.8); Neutrophils % 78.8 % (37.0-80.0); Platelet Count 372 K/mm3 (142-424); Red Blood Count 4.41 M/mm3 (4.60-6.20); Red Cell Distribution Width 13.6 % (11.5-17.5); White Blood Count 12.3 K/mm3 (4.8-10.8)
[2023-10-17 18:44] LABS: Appearance,Urine CLEAR (Clear); Bilirubin,Urine Negative (Negative); Blood, Urine Negative (Negative); Color,Urine YELLOW (Yellow); Glucose,Urine (UA) Negative (Negative); Ketones,Urine TRACE (Negative); Leukocyte Esterase,Urine Negative (Negative); Nitrate,Urine Negative (Negative); Protein,Urine Negative (Negative); Specific Gravity, Urine 1.025 (1.005-1.030); Urobilinogen,Urine 0.2 EU/dl (0.2)
[2023-10-17 19:02] LABS: Sperm,Urine OCC /lpf; Squamous Epithelial Cell,Urine Occasional #/hpf (0-5)
[2023-10-17 19:47] LABS: Alanine Aminotransferase 14 U/L (12-78); Albumin/Globulin Ratio 1.4 (1.1-1.8); Alkaline Phosphatase 91 U/L (38-126); Anion Gap 16.1 mEq/L (5-15); Aspartate Amino Transferase 23 U/L (17-59); Bilirubin,Total 0.7 mg/dl (0.2-1.3); Blood Urea Nitrogen 27 mg/dl (9-20); Calcium 9.6 mg/dl (8.4-10.2); Carbon Dioxide 28 mmol/L (22.0-30.0); Chloride 104 mmol/L (98-107); Estimated Glomerular Filt Rate 59 ml/min (>60); GFR (African American) 71 ML/MIN (>60); Globulin 2.8 g/dL (1.3-3.2); Glucose 100 mg/dl (74-100); Potassium 4.1 mmoL/L (3.5-5.1); Sodium 144 mmol/L (136-145); Total Protein,Serum 6.8 g/dl (6.3-8.2)
== END 2023-10-17 23:59 | disposition home or self-care (01) ==
PROVIDERS: PCP Family Medicine; Visit Provider Family Medicine
DX: G20.A1 Parkinson's disease without dyskinesia, without mention of fluctuations (principal); N39.0 Urinary tract infection, site not specified; U07.1 COVID-19; I11.9 Hypertensive heart disease without heart failure; I25.10 Atherosclerotic heart disease of native coronary artery without angina pectoris; I73.9 Peripheral vascular disease, unspecified; G31.83 Neurocognitive disorder with Lewy bodies; G47.33 Obstructive sleep apnea (adult) (pediatric); N40.0 Benign prostatic hyperplasia without lower urinary tract symptoms; E78.5 Hyperlipidemia, unspecified; R41.82 Altered mental status, unspecified; R27.0 Ataxia, unspecified; R00.1 Bradycardia, unspecified; R07.9 Chest pain, unspecified
CPT/HCPCS: 80053; 81001; 84443; 85025